=== PATIENT | female | born 1935 | race Caucasian/White ===

== ENCOUNTER 2020-02-27 00:26 | Inpatient (IN) | payer MEDICAID, MEDICARE ==
[~2020-02-27] VITALS: Ht 167.6 cm; Wt 78.9 kg
[2020-02-27] VITALS (8 sets, daily range): BP systolic 100–155; BP diastolic 50–77
[~2020-02-27 00:26] MED LIST: ADVA1AER2 IN; LEVA750T OR; LIPI80TA OR; METO50TA4 OR; PLAV75TA2 OR; PRED10TA2 OR; PRED50TA OR; SPIR1CAP INH; XOPEAER IN; [UNRECOGNIZED DRUG - OTHER] PO; vitamin PO
[2020-02-27] MEDS ORDERED: fentaNYL 100 MCG/2 ML INJECTION (J3010) IV ONE (00:45)
[2020-02-27] MEDS ORDERED: ONDANSETRON 4MG/2ML VIAL IV ONE (01:15)
[2020-02-27 01:16] LABS: BASO # 0.1 10^3/uL (0.0-0.2); BASO % 0.5 % (0.0-1.0); EOS # 0.1 10^3/uL (0.0-0.5); EOS % 0.9 % (0.0-3.0); HEMATOCRIT 41.4 % (36.0-47.0); HEMOGLOBIN 12.7 g/dl (12.0-15.5); LYMPH # 1.5 10^3/uL (1.5-5.0); LYMPH % 10.6 % (24.0-44.0); MEAN CORPUSCULAR HEMOGLOBIN 29.9 pg (27.0-33.0); MEAN CORPUSCULAR HGB CONC 30.7 g/dl (32.0-36.5); MEAN CORPUSCULAR VOLUME 97.4 fl (80.0-96.0); MONO # 0.8 10^3/uL (0.0-0.8); MONO % 5.8 % (0.0-5.0); NEUTROPHILS # 11.5 10^3/uL (1.5-8.5); NEUTROPHILS % 81.6 % (36.0-66.0); PLATELET COUNT, AUTOMATED 219 10^3/uL (150-450); RED BLOOD COUNT 4.25 10^6/uL (4.00-5.40); WHITE BLOOD COUNT 14.2 10^3/uL (4.0-10.0)
[2020-02-27 02:09] LABS: ALBUMIN 3.8 GM/DL (3.2-5.2); ALT/SGPT 16 U/L (12-78); BILIRUBIN,DIRECT 0.1 MG/DL (0.0-0.2); BILIRUBIN,TOTAL 0.4 MG/DL (0.2-1.0); BLOOD UREA NITROGEN 20 MG/DL (7-18); CALCIUM LEVEL 8.6 MG/DL (8.8-10.2); CARBON DIOXIDE LEVEL 32 MEQ/L (21-32); CHLORIDE LEVEL 101 MEQ/L (98-107); CK-MB VALUE MASS 2.4 NG/ML (<3.6); CPK CREATINE PHOSPHOKINASE 66 U/L (26-192); GLOMERULAR FILTRATION RATE > 60.0 (>32); GLUCOSE, FASTING 118 MG/DL (70-100); MB/CK RELATIVE INDEX 3.64 (< OR =4); SODIUM LEVEL 139 MEQ/L (136-145); TOTAL PROTEIN 7.4 GM/DL (6.4-8.2); TROPONIN I < 0.02 NG/ML (< 0.10)
[2020-02-27] MEDS ORDERED: ISOVUE-370 76% 100ML VIAL As Ordered ONE (02:19)
--- NOTE | 2020-02-27 02:51 | REPVR ---
PROCEDURE INFORMATION: Exam: XR Right Femur Exam date and time: 02/27/20 (1:50am) Age: 84 years old Clinical indication: Fall. Possible fracture. TECHNIQUE: Imaging protocol: XR Right femur Views: 2 views. COMPARISON: No relevant prior studies available FINDINGS: Acute displaced transcervical fracture of the right femoral neck. The femoral shaft is displaced superiorly by approx. 3 cm. Resultant varus deformity at the right hip. Degenerative changes at the right hip. No dislocation. Advanced degenerative changes at the right knee. IMPRESSION: Acute displaced fracture at the right femoral neck. No dislocation. Varus deformity at the right hip. Electronically signed by: Beti Agrawal On 02/27/2020 02:50:43 AM
--- NOTE | 2020-02-27 03:01 | REPVR ---
PROCEDURE INFORMATION: Exam: XR Right Knee Exam date and time: 02/27/20 (1:53am) Age: 84 years old Clinical indication: Fall. Possible fracture. TECHNIQUE: Imaging protocol: XR Right knee Views: 2 views COMPARISON: Right femur plain films of 02/27/20 FINDINGS: Advanced degenerative changes at the right knee. Significant tricompartmental narrowing. Diffuse osteopenia. No acute fracture. No dislocation. No significant joint effusion. Faint chondrocalcinosis changes may also be present. IMPRESSION: No acute findings. Advanced tricompartmental osteoarthritic changes at the right knee. Electronically signed by: Beti Agrawal On 02/27/2020 03:00:49 AM
--- NOTE | 2020-02-27 03:10 | REPVR ---
PROCEDURE INFORMATION: Exam: CT Abdomen and Pelvis with Contrast Exam date and time: 02/27/20 (2:33am) Age: 84 years old Clinical indication: Fall. Blunt trauma. Right hip pain after fall. TECHNIQUE: Imaging protocol: Computed tomography of the abdomen and pelvis with intravenous contrast. Radiation optimization: All CT scans at this facility use at least one of these dose optimization techniques: automated exposure control; mA and/or kV adjustment per patient size (includes targeted exams where dose is matched to clinical indication); or iterative reconstruction. Contrast material: Isovue 370 Contrast volume: 100 ml Contrast route: IV COMPARISON: No relevant prior studies available FINDINGS: Lower lung barber: Emphysematous lung changes. Probable scarring and chronic fibrotic changes at the lung bases. No pleural effusions. Moderately-sized hiatal hernia (4 x 5.5 cm in axial dimensions). Liver: Normal. No solid mass. Gallbladder and bile ducts: Normal. No calcified stones. No ductal dilatation. Pancreas: Normal. No ductal dilatation. Spleen: Normal. No splenomegaly. Adrenal glands: Normal. No mass. Kidneys and ureters: Normal. No hydronephrosis. Stomach and bowel: Unremarkable. No bowel obstruction. No mucosal thickening. Appendix: No evidence of appendicitis. Intraperitoneal space: Unremarkable. No free air. No significant fluid collection. Vasculature: Unremarkable. No abdominal aortic aneurysm. Lymph nodes: Unremarkable. No enlarged lymph nodes. Urinary bladder: Unremarkable as visualized. Reproductive: Unremarkable as visualized. Bones/joints: Acute displaced fracture at the base of the right femoral head (see separate CT-RIGHT HIP report). No hip dislocation. Multilevel degenerative thoraco-lumbar spine changes. Vacuum disc phenomenon at multiple levels. Mild dextroscoliosis of the lumbar spine. Soft tissues: Unremarkable. IMPRESSION: No acute abdominal nor intrapelvic pathology. No definite organ injury. Moderately-sized hiatal hernia. Acute displaced fracture at the base of the right femoral head (subcapital fracture) (see separate CT-RIGHT HIP report). No hip dislocation. Electronically signed by: Beti Agrawal On 02/27/2020 03:10:25 AM
--- NOTE | 2020-02-27 03:12 | REPVR ---
PROCEDURE INFORMATION: Exam: CT Right Lower Extremity Without Contrast, Hip Exam date and time: 02/27/2020 2:37 AM Age: 84 years old Clinical indication: Injury or trauma; Fall; Blunt trauma; Hip; Right; Additional info: Right hip pain after fall TECHNIQUE: Imaging protocol: CT of the Right lower extremity without contrast was performed. Exam focused on the hip. Radiation optimization: All CT scans at this facility use at least one of these dose optimization techniques: automated exposure control; mA and/or kV adjustment per patient size (includes targeted exams where dose is matched to clinical indication); or iterative reconstruction. COMPARISON: CR Knee, Ap, Lat RIGHT 02/27/2020 1:58 AM FINDINGS: Bones/joints: There is a subcapital fracture of the right femoral neck with cephalad migration of the distal fragment. There is external rotation of the distal fragment through the site of fracture. No pelvic or acetabular fracture is seen. Soft tissues: Normal. Appendix: Partial visualization of a normal appendix. IMPRESSION: Subcapital fracture of the right femoral neck with cephalad migration of the distal fragment and external rotation of the distal fragment through the site of fracture. Electronically signed by: Roman Goodwin On 02/27/2020 03:11:46 AM
--- NOTE | 2020-02-27 03:25 | HPEPDOC ---
[facility] Medical History & Physical Date of Admission Feb 27, 2020 Date of Service: Feb 27, 2020 Primary Care Physician: ULISSES ROA PA-C Attending Physician: HAN DO MD History and Physical TIME OF SERVICE 345AM CHIEF COMPLAINT: fall HISTORY OF PRESENT ILLNESS: Yesterday evening, this 84 yr old F tripped and fell while trying to bend down to look underneath a table. As a result of the fall she landed on her right hip and developed sharp 10/10 in severity hip pain. She denied having CP, dyspnea, dizziness, v or d prior to the fall. She hitting her head or LOC after the fall. Her chronic cough has not changed recently. 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 HOME MEDICATIONS: Please see below. PHYSICAL EXAMINATION: Vital Signs Date Time Temp Pulse Resp B/P (MAP) Pulse Ox O2 Delivery O2 Flow Rate FiO2 02/27/20 00:30 95 20 177/90 100 Nasal Cannula 3.0 02/27/20 00:43 98.1 GENERAL APPEARANCE: well nourished/ well developed / NAD HEENT: MM dry but pink /NC in place CARDIOVASCULAR: RRR/NMRG /radial pulses intact/ no BLE edema LUNGS: CTAB / equal air entry bilaterally ABDOMEN: flat / soft & NT w palpation MUSCULOSKELETAL: NCAT INTEGUMENT: not flushed NEUROLOGICAL: CN 2-12 intact /speech not dysarthric PSYCHIATRIC: A&Ox 3/ able to understand and follow commands LABORATORY DATA: Immature Granulocyte % (Auto) 0.6, Neutrophils (%) (Auto) 81.6H, Lymphocytes (%) (Auto) 10.6L, Monocytes (%) (Auto) 5.8H, Eosinophils (%) (Auto) 0.9, Basophils (%) (Auto) 0.5, Neutrophils # (Auto) 11.5H, Lymphocytes # (Auto) 1.5, Monocytes # (Auto) 0.8, Eosinophils # (Auto) 0.1, Basophils # (Auto) 0.1, Nucleated Red Blood Cells % (auto) 0.0 Anion Gap 6L, Glomerular Filtration Rate > 60.0, Calcium Level 8.6L, Total Bilirubin 0.4, Direct Bilirubin 0.1, Aspartate Amino Transf (AST/SGOT) 18, Alanine Aminotransferase (ALT/SGPT) 16, Alkaline Phosphatase 73, Total Creatine Kinase 66, Creatine Kinase MB 2.4, Creatine Kinase MB Relative Index 3.64, Troponin I < 0.02, Total Protein 7.4, Albumin 3.8, Albumin/Globulin Ratio 1.1L IMAGING: Xray hip "IMPRESSION: Acute displaced fracture at the right femoral neck. No dislocation. Varus deformity at the right hip." CT hip w/o contrast "IMPRESSION: Subcapital fracture of the right femoral neck with cephalad migration of the distal fragment and external rotation of the distal fragment through the site of fracture" ASSESSMENT: is an 84 yr old former smoker w COPD, chronic O2 dependence, Pulm HTN, & CAD who had a mechanical fall onto her hip and will be admitted for management of right femoral neck fx. PLAN: 1. Mechanical Fall Likely due to a combination of muscular weakness and pooor vision CT of the head unrevealing Trop wnl Plan: Admit to medical floor / frequent neuro checks/ after surgery the day time team may consult physical therapy consult to determine if she needs inpatient rehabilitation versus placement in an assisted living facility 2. Right Femoral Neck Fracture Preoperative Assessment: ASA Physical Status pre-op classification = 0 points = Class 1. Since her pro-BNP is <300 no additional testing is recommended prior to proceeding with surgery Plan: NPO after midnight w IVF for surgery possibly today / check COVID-19 / Ortho consult / pain control w Morphine / will ask RNs to place a Fonseca so she doesn't have to move her leg to get on a bed melissa 3. Suspected Osteoporosis Plan: post-op the day time team may start calcium & vitamin D/ she can f/u w her PCP for DEXA scan 4.Tachycardia Likely 2/2 pain Trop & K wnl Plan: IVF / f/u TSH K, Mag, D-dimer, Troponin, EKG, urine catecholamines 5.COPD with Chronic O2 Dependent Respiratory Failure She denies dyspnea or change in her chronic cough Plan: c/w O2, Spiriva daily and albuterol PRN DVT Px w SCDs Dispo: in pt rehab vs SNF for rehab after more than 2 midnight's stay Home Medications Scheduled Tiotropium [place] (Spiriva) 18 Mcg Cap.w.dev, 1 INHALATION INH DAILY Allergies Coded Allergies: Penicillins (Verified Allergy, Unknown, 02/27/20) aspirin (Verified Allergy, Unknown, 02/27/20) A-FIB/CHADSVASC A-FIB History Current/History of A-Fib/PAF?: No Current PO Anticoag Therapy: No HAN DO MD Feb 27, 2020 03:25
[2020-02-27] MEDS ORDERED: SPIR1CAP INH (03:33)
[2020-02-27 03:34] LABS: PROTHROMBIN TIME 13.4 SECONDS (12.5-14.3)
[2020-02-27 03:35] LABS: NT-PRO BNP 230 PG/ML (<450)
[2020-02-27] MEDS: LR 1,000 ML IV SCH ×3 (03:52→21:17)
[2020-02-27] MEDS ORDERED: ALBUTEROL SULFATE 2.5 MG/0.5 ML INH NEB SOLN NEB PRN (04:30)
[2020-02-27] MEDS: MORPHINE 2 MG/ML 1ML VIAL (J2270) IV PRN ×2 (04:59→15:10)
[2020-02-27] MEDS ORDERED: CLINDAMYCIN 900 MG in IV 1 EA IV ONE (07:00)
[2020-02-27] MEDS: TIOTROPIUM INHALER/CAPSULE (SPIRIVA) INH SCH (07:41)
[2020-02-27] MEDS ORDERED: fentaNYL 100 MCG/2 ML INJECTION (J3010) As Ordered ONE (07:48)
[2020-02-27] MEDS ORDERED: MIDAZOLAM INJ 2MG/2ML VIAL (J2250 PER 1MG) As Ordered ONE (07:48)
[2020-02-27] MEDS ORDERED: LIDOCAINE 2% 100MG/5ML SDV (FOR ANES.) As Ordered ONE (07:49)
[2020-02-27] MEDS ORDERED: propofoL 200 MG/20 ML VIAL As Ordered ONE (07:49)
[2020-02-27] MEDS ORDERED: propofoL 500 MG/50 ML VIAL As Ordered ONE (07:49)
[2020-02-27] MEDS ORDERED: CLINDAMYCIN INJ 900MG/6ML VIAL As Ordered ONE (07:55)
[2020-02-27] MEDS ORDERED: EPINEPHrine INJ 1 MG/ML 1ML AMP As Ordered ONE (07:55)
[2020-02-27] MEDS ORDERED: CLINDAMYCIN 600 MG/50 ML PREMIX BAG As Ordered ONE (07:55)
--- NOTE | 2020-02-27 08:04 | ECGEPIP ---
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
[2020-02-27] MEDS: LIDOCAINE 5% OINT 30 GM TOP SCH ×2 (08:16→21:17)
[2020-02-27] MEDS ORDERED: PHENYLephrine HCL 500 MCG/5 ML (100MCG/ML) SYRINGE (J2370) As Ordered ONE ×3 (09:14→10:03)
[2020-02-27] MEDS ORDERED: TRANEXAMIC ACID 100 MG/ML 10ML VIAL As Ordered ONE (09:14)
[2020-02-27] MEDS ORDERED: ACETAMINOPHEN 1000MG 100ML IV BTL (OFIRMEV) (J0131 PER 10MG) As Ordered ONE (09:20)
[2020-02-27] MEDS ORDERED: ePHEDrine SULFATE 25 MG/5 ML(5MG/ML) SYRINGE As Ordered ONE (10:23)
[2020-02-27] MEDS ORDERED: oxyCODONE 5MG TAB PO PRN (11:00)
[2020-02-27] MEDS ORDERED: MEPERIDINE INJ 25 MG/ML VIAL (J2175) IV PRN (11:00)
[2020-02-27] MEDS ORDERED: ONDANSETRON 4MG/2ML VIAL IV PRN (11:00)
[2020-02-27] MEDS ORDERED: METOCLOPRAMIDE INJ 10MG/2ML VIAL (J2765 PER 1) IV PRN (11:00)
[2020-02-27] MEDS ORDERED: fentaNYL 100 MCG/2 ML INJECTION (J3010) IV PRN (11:00)
[2020-02-27] MEDS ORDERED: LR 1,000 ML IV SCH (11:00)
--- NOTE | 2020-02-27 11:13 | REP ---
INDICATION: S/P RIGHT HIP HEMIARTHROPLASTY. COMPARISON: Comparison right hip radiographs February 27, 2020 at 1:48 a.m... TECHNIQUE: Single-view. FINDINGS: Portably obtained AP radiograph of the right hip demonstrates a right hip hemiarthroplasty. Femoral head portion of the arthroplasty appears to be subluxed inferiorly and laterally from the acetabulum. There is a 2.8 cm opacity projecting in the joint between the metallic femoral head component and the medial wall of the acetabulum. There is postoperative emphysema in adjacent to the arthroplasty. IMPRESSION: Inferolateral subluxation/dislocation of the right hip hemiarthroplasty. Question opaque material in the joint. <Electronically signed by Chava Poole > 02/27/20 0022
[2020-02-27] MEDS ORDERED: oxyCODONE 5MG TAB As Ordered ONE (11:47)
[2020-02-27 11:53] LABS: BLOOD UREA NITROGEN 17 MG/DL (7-18); CALCIUM LEVEL 8.4 MG/DL (8.8-10.2); CARBON DIOXIDE LEVEL 33 MEQ/L (21-32); CHLORIDE LEVEL 102 MEQ/L (98-107); CREATININE FOR GFR 0.78 MG/DL (0.55-1.30); GLOMERULAR FILTRATION RATE > 60.0 (>32); GLUCOSE, FASTING 135 MG/DL (70-100); MAGNESIUM LEVEL 2.1 MG/DL (1.8-2.4); POTASSIUM SERUM 4.5 MEQ/L (3.5-5.1); SODIUM LEVEL 138 MEQ/L (136-145); TROPONIN I < 0.02 NG/ML (< 0.10)
[2020-02-27] MEDS ORDERED: PERCOCET 5MG/325MG TAB PO PRN ×2 (16:00)
[2020-02-28] VITALS (11 sets, daily range): BP systolic 116–152; BP diastolic 58–98
[2020-02-28] MEDS ORDERED: CLINDAMYCIN 900 MG in IV 1 EA IV SCH (06:00)
[2020-02-28] MEDS ORDERED: NS 1,000 ML IV SCH (06:21)
[2020-02-28 06:41] LABS: HEMATOCRIT 35.6 % (36.0-47.0); HEMOGLOBIN 11.3 g/dl (12.0-15.5); MEAN CORPUSCULAR HGB CONC 31.7 g/dl (32.0-36.5); MEAN CORPUSCULAR VOLUME 97.5 fl (80.0-96.0); PLATELET COUNT, AUTOMATED 162 10^3/uL (150-450); RED BLOOD COUNT 3.65 10^6/uL (4.00-5.40); WHITE BLOOD COUNT 11.5 10^3/uL (4.0-10.0)
[2020-02-28 06:59] LABS: BLOOD UREA NITROGEN 14 MG/DL (7-18); CALCIUM LEVEL 8.4 MG/DL (8.8-10.2); CARBON DIOXIDE LEVEL 33 MEQ/L (21-32); CHLORIDE LEVEL 101 MEQ/L (98-107); CREATININE FOR GFR 0.67 MG/DL (0.55-1.30); GLOMERULAR FILTRATION RATE > 60.0 (>32); GLUCOSE, FASTING 99 MG/DL (70-100); POTASSIUM SERUM 4.1 MEQ/L (3.5-5.1); SODIUM LEVEL 137 MEQ/L (136-145)
[2020-02-28] MEDS: TIOTROPIUM INHALER/CAPSULE (SPIRIVA) INH SCH (07:17)
[2020-02-28] MEDS ORDERED: CLINDAMYCIN INJ 900MG/6ML VIAL As Ordered ONE (07:41)
[2020-02-28] MEDS ORDERED: CLINDAMYCIN 600 MG/50 ML PREMIX BAG As Ordered ONE (08:12)
[2020-02-28] MEDS ORDERED: propofoL 200 MG/20 ML VIAL As Ordered ONE (08:27)
[2020-02-28] MEDS ORDERED: fentaNYL 100 MCG/2 ML INJECTION (J3010) As Ordered ONE (08:27)
--- NOTE | 2020-02-28 08:36 | IPNPDOC ---
Date Seen The patient was seen on 02/28/20. Progress Note SUBJECTIVE: POD #1 Right hip hemiarthroplasty. possible retained bone vs glue with plans to go back to the OR today. still npo. c/o /10 pain righthip, but just r received pain meds. no fever/chills/sob/chest pain. no other issues overnight OBJECTIVE PHYSICAL EXAMINATION: vitals see below GENERAL APPEARANCE:aaox3 no respiratory distress HEENT:dry mucus membranes no jvd thyromegaly or cervical LAD CARDIOVASCULAR: RRR S1 S2 no m/r/g LUNGS: AEBE CTAB no w/r/r ABDOMEN: +bs x 4 quadrants soft & NT w palpation MUSCULOSKELETAL: rt hip postop skin pink and color warm to touch EXT: no edema b/l LE LABORATORY DATA, IMAGING STUDIES, MICROBIOLOGY: Please see below. ASSESSMENT: is an 84 yr old former smoker w COPD, chronic O2 dependence, Pulm HTN, & CAD who had a mechanical fall onto her hip and will be admitted for management of right femoral neck fx. PROBLEMS: Mechanical Fall Right Femoral Neck Fracture s/p right hip hemiarthroplasty with retained material? Osteoporosis COPD Chronic hypoxic Respiratory Failure on 2 lnc oxygen PLAN: pt is going back to the OR due to retained fragment for second look. npo status. pain mgt, dvt prophylaxis and post op mgt per ortho. resumed onall other home meds. VS, I&O, 24H, Fishbone Vital Signs/I&O Vital Signs Date Time Temp Pulse Resp B/P (MAP) Pulse Ox O2 Delivery O2 Flow Rate FiO2 02/28/20 02:00 98.7 114 18 152/81 (104) 94 Nasal Cannula 3.0 I&O- Last 24 Hours up to 6 AM 02/28/20 06:00 Intake Total 2310 ml Output Total 700 ml Balance 1610 ml Laboratory Data 24H LABS Laboratory Tests 2 02/27/20 10:47: Anion Gap 3L, Glomerular Filtration Rate > 60.0, Calcium Level 8.4L, Magnesium Level 2.1, Troponin I < 0.02 02/28/20 06:12: Nucleated Red Blood Cells % (auto) 0.0 02/28/20 06:13: Anion Gap 3L, Glomerular Filtration Rate > 60.0, Calcium Level 8.4L CBC/BMP Laboratory Tests 02/27/20 10:47 02/28/20 06:12 02/28/20 06:13 JASIEL CONTEH MD Feb 28, 2020 07:17
[2020-02-28] MEDS ORDERED: TRANEXAMIC ACID 100 MG/ML 10ML VIAL As Ordered ONE (08:43)
[2020-02-28] MEDS ORDERED: PHENYLephrine HCL 500 MCG/5 ML (100MCG/ML) SYRINGE (J2370) As Ordered ONE (08:47)
[2020-02-28] MEDS ORDERED: MIRALAX *UNIT DOSE* 17GM PACKET PO SCH (09:00)
[2020-02-28] MEDS ORDERED: MOM 30ML SUSPENSION UDC PO SCH (09:00)
[2020-02-28] MEDS ORDERED: LEVALBUTEROL 1.25 MG/0.5 ML CONCENTRATE NEB As Ordered ONE (10:03)
[2020-02-28] MEDS ORDERED: ONDANSETRON 4MG/2ML VIAL As Ordered ONE (10:04)
[2020-02-28] MEDS ORDERED: oxyCODONE 5MG TAB As Ordered ONE (10:04)
--- NOTE | 2020-02-28 10:31 | REP ---
INDICATION: yvon with foreign body. COMPARISON: Comparison is made with operative radiographs February 27, 2020.. TECHNIQUE: Three views. 15 seconds of fluoroscopy time is reported. FINDINGS: A sequence of 3 last image hold fluoroscopically obtained spot radiographs of the right hip hemiarthroplasty are presented. The last image in the sequence time stamped 1007 and 43 seconds a.m. shows reduction of the hemiarthroplasty. IMPRESSION: Procedural imaging. <Electronically signed by Chava Poole > 02/28/20 1021
--- NOTE | 2020-02-28 10:33 | REP ---
INDICATION: S/P arthroplasty, please perform in pacu. COMPARISON: Intraoperative C-arm images 02/28/20 TECHNIQUE: Single AP portable view FINDINGS: There is a right hip arthroplasty with the femoral stem component well aligned in relationship to the [place] bone and acetabulum. There is no visible fracture in the acetabulum or pubic rami IMPRESSION: Status post right hip arthroplasty with the prosthetic component well aligned in relationship to the [place] bone and acetabulum. <Electronically signed by Adrian Winkler > 02/28/20 1029
[2020-02-28] MEDS ORDERED: ONDANSETRON 4MG/2ML VIAL IV PRN ×2 (10:45)
[2020-02-28] MEDS ORDERED: LEVALBUTEROL 1.25 MG/0.5 ML CONCENTRATE NEB INH ONE (10:45)
[2020-02-28] MEDS ORDERED: LR 1,000 ML IV SCH ×2 (10:45)
[2020-02-28] MEDS ORDERED: MORPHINE 2 MG/ML 1ML VIAL (J2270) IV PRN (10:45)
[2020-02-28] MEDS ORDERED: oxyCODONE 5MG TAB PO PRN (10:45)
[2020-02-28] MEDS ORDERED: fentaNYL 100 MCG/2 ML INJECTION (J3010) IV PRN (10:45)
[2020-02-28] MEDS ORDERED: LEVALBUTEROL 1.25 MG/0.5 ML CONCENTRATE NEB INH PRN (11:00)
[2020-02-28] MEDS ORDERED: IPRATROPIUM 0.02% SOLN 0.5MG 2.5ML NEB INH PRN (11:00)
--- NOTE | 2020-02-28 11:06 | REP ---
INDICATION: DECREASED O2 SATS, INCREASED WORK OF BREATHING. COMPARISON: 08/04/2015 TECHNIQUE: AP portable semi erect chest FINDINGS: Lungs are somewhat hypoinflated compared to the previous study. There are diffuse coarsened interstitial markings throughout and they are somewhat exaggerated compared to that same appearance on the previous study, likely due to lesser degree of inflation. Heavier sign that markings are seen peripherally in the bases. Patchy subsegmental atelectasis or infiltrate noted retrocardiac region of the left lower lobe. I could not exclude small amount of atelectasis or infiltrate in the right CP angle. The heart size appears somewhat exaggerated due to low level of inflation. There is a calcified and tortuous ectatic aorta. The hypoinflation increase in appearance of mild vascular congestion. No visible effusion blunting CP angles but small effusions difficult to exclude. Airway intact. Bones are demineralized. There are degenerative changes in the spine shoulders. No free air under the diaphragm. IMPRESSION: 1. Chronic diffuse interstitial lung findings similar to the previous exam but exaggerated since 2016 by low-level of inflation 2. Patchy retrocardiac atelectasis or infiltrate in the left lower lobe. Questionable similar findings in the right CP angle. 3. Cardiac silhouette exaggerated by low level of inflation. Some mild vascular redistribution difficult to exclude with low-level inflation and underlying interstitial lung disease. Sign that <Electronically signed by Adrian Winkler > 02/28/20 [id number]
[2020-02-28] MEDS: LEVALBUTEROL 1.25 MG/0.5 ML CONCENTRATE NEB INH SCH ×3 (11:12→20:00)
[2020-02-28] MEDS: IPRATROPIUM 0.02% SOLN 0.5MG 2.5ML NEB INH SCH ×3 (11:13→20:00)
[2020-02-28 12:18] LABS: CK-MB VALUE MASS 5.9 NG/ML (<3.6); CPK CREATINE PHOSPHOKINASE 744 U/L (26-192); MB/CK RELATIVE INDEX 0.79 (< OR =4); NT-PRO BNP 1540 PG/ML (<450); TROPONIN I < 0.02 NG/ML (< 0.10)
--- NOTE | 2020-02-28 13:50 | ECGEPIP ---
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 Right axis deviation with right bundle branch block No change from 02/27/20. Electronically Signed on 02-28-2020 13:50:02 EST by Prakash Hinton
[2020-02-28] MEDS: ACETAMINOPHEN TAB 650MG DOSE (2X325MG) PO PRN (16:09)
[2020-02-28] MEDS: CLINDAMYCIN 600 MG in IV 1 EA IV SCH (16:09)
[2020-02-28] MEDS: PERCOCET 5MG/325MG TAB PO PRN (19:31)
[2020-02-29] MEDS: CLINDAMYCIN 600 MG in IV 1 EA IV SCH (01:10)
[2020-02-29 02:00] VITALS: BP 138/73
[2020-02-29] MEDS: LEVALBUTEROL 1.25 MG/0.5 ML CONCENTRATE NEB INH SCH ×7 (03:09→23:19)
[2020-02-29] MEDS: IPRATROPIUM 0.02% SOLN 0.5MG 2.5ML NEB INH SCH ×7 (03:09→23:19)
[2020-02-29] MEDS: ACETAMINOPHEN TAB 650MG DOSE (2X325MG) PO PRN (05:25)
[2020-02-29 06:00] VITALS: BP 147/73
[2020-02-29] MEDS ORDERED: metOLazone 5 MG TAB PO ONE (07:30)
[2020-02-29] MEDS ORDERED: FUROSEMIDE 40MG/4ML VIAL (J1940) IV ONE (08:00)
[2020-02-29] MEDS: MOM 30ML SUSPENSION UDC PO SCH (08:09)
[2020-02-29] MEDS: MIRALAX *UNIT DOSE* 17GM PACKET PO SCH (08:09)
--- NOTE | 2020-02-29 08:53 | IPNPDOC ---
Date Seen The patient was seen on 02/29/20. Progress Note SUBJECTIVE: POD 21 Right hip hemiarthroplasty. c/o worsening respiratory distress now on 5liters from baseline 2liters o2 by nc with wheezing, improved w xopenex. CXR: chronic changes, but elevated bnp. no c/o chest pain, palpitations but found to be tachycardic. had been on xarelto postop and pt refused cta chest to rule out PE. OBJECTIVE PHYSICAL EXAMINATION: vitals see below GENERAL APPEARANCE:aaox3 no respiratory distress HEENT:dry mucus membranes no jvd thyromegaly or cervical LAD CARDIOVASCULAR: irregular tachycardic S1 S2 2/6 DELROY LLSB LUNGS: AEBE CTAB no w/r/r ABDOMEN: +bs x 4 quadrants soft & NT w palpation MUSCULOSKELETAL: rt hip postop skin pink and color warm to touch EXT: no edema b/l LE LABORATORY DATA, IMAGING STUDIES, MICROBIOLOGY: Please see below. ASSESSMENT: is an 84 yr old former smoker w COPD, chronic O2 dependence, Pulm HTN, & CAD who had a mechanical fall onto her hip and will be admitted for management of right femoral neck fx. PROBLEMS: Mechanical Fall Right Femoral Neck Fracture s/p right hip hemiarthroplasty POD2 w ?retained material glue vs bone fragment Osteoporosis acute COPD exacerbation moderately severe pulmonary hypertension 50-60mmHg on 2010 Echo(Dr. Mendez) mod Tricuspid regurgitation grade 1 diastolic CHF EF 65% on echo 2010, acute right sided chf exacerbation w preserved systolic function due to cor pulmonale/pulm HTN Acute on Chronic hypoxic Respiratory Failure on 2 lnc oxygen at baseline, now on 5l nc o2 abnormal EKG-Premature atrial contractions PLAN: Pt refused workup of worserning hypoxia. Treated w nebs and short course of prednisone and trial of diuretics to see if pt's hypoxia improves. she has been anticoagulated w xarelton postop. card fay neg. pt has moderately-severe pulmonary HTN 50-60mmHg makingher prone to fluid overload and rightsided heart failure. will need to monitor strict i/o, weigh daily. postop mgt per ortho. VS, I&O, 24H, Fishbone Vital Signs/I&O Vital Signs Date Time Temp Pulse Resp B/P (MAP) Pulse Ox O2 Delivery O2 Flow Rate FiO2 02/29/20 06:00 98.2 111 19 147/73 (97) 95 Nasal Cannula 5.0 02/28/20 12:45 40 I&O- Last 24 Hours up to 6 AM 02/29/20 06:00 Intake Total 3110 ml Output Total 1200 ml Balance 1910 ml Laboratory Data 24H LABS Laboratory Tests 2 02/28/20 11:25: Total Creatine Kinase 744#H, Creatine Kinase MB 5.9H, Creatine Kinase MB Relative Index 0.79, Troponin I < 0.02, KK-Jes-G-Type Natriuretic Peptide 1540H JASIEL CONTEH MD Feb 29, 2020 08:47
[2020-02-29] MEDS ORDERED: predniSONE 20 MG TAB PO SCH (09:00)
[2020-02-29 09:10] LABS: BASO % 0.3 % (0.0-1.0); EOS # 0.1 10^3/uL (0.0-0.5); EOS % 1.2 % (0.0-3.0); HEMATOCRIT 34.8 % (36.0-47.0); HEMOGLOBIN 10.8 g/dl (12.0-15.5); LYMPH # 0.6 10^3/uL (1.5-5.0); LYMPH % 5.2 % (24.0-44.0); MEAN CORPUSCULAR HEMOGLOBIN 30.4 pg (27.0-33.0); MONO % 8.2 % (0.0-5.0); NEUTROPHILS # 9.9 10^3/uL (1.5-8.5); NEUTROPHILS % 84.8 % (36.0-66.0); PLATELET COUNT, AUTOMATED 161 10^3/uL (150-450); RED BLOOD COUNT 3.55 10^6/uL (4.00-5.40); WHITE BLOOD COUNT 11.6 10^3/uL (4.0-10.0)
[2020-02-29 09:54] LABS: ALBUMIN 2.8 GM/DL (3.2-5.2); ALT/SGPT 18 U/L (12-78); BILIRUBIN,TOTAL 0.5 MG/DL (0.2-1.0); BLOOD UREA NITROGEN 15 MG/DL (7-18); CALCIUM LEVEL 8.6 MG/DL (8.8-10.2); CARBON DIOXIDE LEVEL 35 MEQ/L (21-32); CHLORIDE LEVEL 98 MEQ/L (98-107); CK-MB VALUE MASS 3.4 NG/ML (<3.6); CPK CREATINE PHOSPHOKINASE 545 U/L (26-192); CREATININE FOR GFR 0.78 MG/DL (0.55-1.30); GLOMERULAR FILTRATION RATE > 60.0 (>32); GLUCOSE, FASTING 96 MG/DL (70-100); MB/CK RELATIVE INDEX 0.62 (< OR =4); NT-PRO BNP 2455 PG/ML (<450); POTASSIUM SERUM 4.3 MEQ/L (3.5-5.1); SODIUM LEVEL 137 MEQ/L (136-145); TOTAL PROTEIN 6.2 GM/DL (6.4-8.2); TROPONIN I < 0.02 NG/ML (< 0.10)
[2020-02-29] MEDS: PERCOCET 5MG/325MG TAB PO PRN ×2 (13:53→17:55)
[2020-02-29 14:00] VITALS: BP 128/84
[2020-02-29] MEDS: RIVAROXABAN 10 MG TAB (XARELTO) PO SCH (17:54)
[2020-02-29 18:23] LABS: IONIZED CALCIUM 4.3 MG/DL (4.5-5.3)
[2020-02-29 18:41] LABS: CALCIUM LEVEL 8.6 MG/DL (8.8-10.2); CREATININE FOR GFR 1.02 MG/DL (0.55-1.30); POTASSIUM SERUM 4.4 MEQ/L (3.5-5.1)
--- NOTE | 2020-02-29 21:04 | ECGEPIP ---
[facility] Test Date: 2020-02-29 Pat Name: HAKAN VICKERS Department: Room: [place] [address] Gender: Female Hr Clerk: NERIS : 1935 Requested By: JASIEL Noe Order Number: [id number] Reading MD: Alonso Carranza Measurements Intervals [place] Rate: 101 P: 41 [place]: 135 QRS: 127 QRSD: 157 T: -8 QT: 360 QTc: 467 Interpretive Statements SINUS TACHYCARDIA WITH OCCASIONAL VENTRICULAR PREMATURE COMPLEXES RIGHT AXIS DEVIATION Low QRS complex voltage in the limb leads RIGHT BUNDLE BRANCH BLOCK Similar to tracing done 02-28-20 Electronically Signed on 02-29-2020 21:04:02 EST by Alonso Carranza
[2020-02-29 22:00] VITALS: BP 116/85
[2020-03-01] MEDS: LEVALBUTEROL 1.25 MG/0.5 ML CONCENTRATE NEB INH SCH ×6 (03:49→23:12)
[2020-03-01] MEDS: IPRATROPIUM 0.02% SOLN 0.5MG 2.5ML NEB INH SCH ×3 (03:49→11:43)
[2020-03-01 05:30] LABS: HEMATOCRIT 30.2 % (36.0-47.0); HEMOGLOBIN 9.4 g/dl (12.0-15.5); MEAN CORPUSCULAR HEMOGLOBIN 29.9 pg (27.0-33.0); MEAN CORPUSCULAR HGB CONC 31.1 g/dl (32.0-36.5); MEAN CORPUSCULAR VOLUME 96.2 fl (80.0-96.0); PLATELET COUNT, AUTOMATED 162 10^3/uL (150-450); RED BLOOD COUNT 3.14 10^6/uL (4.00-5.40); WHITE BLOOD COUNT 10.3 10^3/uL (4.0-10.0)
[2020-03-01 05:51] LABS: BLOOD UREA NITROGEN 20 MG/DL (7-18); CALCIUM LEVEL 8.4 MG/DL (8.8-10.2); CARBON DIOXIDE LEVEL 38 MEQ/L (21-32); CHLORIDE LEVEL 95 MEQ/L (98-107); CREATININE FOR GFR 0.77 MG/DL (0.55-1.30); GLOMERULAR FILTRATION RATE > 60.0 (>32); GLUCOSE, FASTING 93 MG/DL (70-100); SODIUM LEVEL 137 MEQ/L (136-145)
[2020-03-01] MEDS ORDERED: ONDANSETRON 4 MG TAB PO PRN (06:30)
[2020-03-01 06:56] VITALS: BP 119/75
[2020-03-01] MEDS ORDERED: PERC5TAB12 PO (07:08)
[2020-03-01] MEDS ORDERED: XARE10TA PO (07:08)
[2020-03-01] MEDS ORDERED: FUROSEMIDE 40MG/4ML VIAL (J1940) IV SCH (09:00)
[2020-03-01] MEDS: predniSONE 20 MG TAB PO SCH (09:27)
[2020-03-01] MEDS: MOM 30ML SUSPENSION UDC PO SCH (09:27)
[2020-03-01] MEDS: MIRALAX *UNIT DOSE* 17GM PACKET PO SCH (09:27)
[2020-03-01] MEDS: PERCOCET 5MG/325MG TAB PO PRN ×2 (09:29→17:51)
--- NOTE | 2020-03-01 11:07 | CR ---
DATE OF CONSULTATION: 02/27/2020 CHIEF COMPLAINT: Right femoral neck fracture. HISTORY OF PRESENT ILLNESS: This 84-year-old female had a trip and fall at home. She is unable to ambulate. She was found to have a right hip fracture by the emergency department physician advisory application developer. She denied loss of consciousness or injury to anywhere else besides the right hip. She is seen in the hernandez at [facility]. PAST MEDICAL/SURGICAL HISTORY: 1. 2. Chronic obstructive pulmonary disease (COPD). 3. Chronic O2-dependent respiratory failure. 4. Coronary artery disease (CAD). 5. Dyslipidemia. 6. Pulmonary hypertension. 7. Mitral valve repair (MVR). 8. Tricuspid valve repair (TVR). 9. Hiatal hernia. 10. Tonsillectomy. MEDICATIONS: - Tiotropium. ALLERGIES: PENICILLIN AND ASPIRIN. SOCIAL HISTORY: She has four children. Lives alone. Former smoker. PHYSICAL EXAMINATION: Well-appearing 84-year-old female. BMI of 27. Vital signs are stable. She appears well. She is alert and oriented x3. She communicates appropriately. Her right lower extremity is slightly shorter and externally rotated. Skin is intact and dry overlying the right hip. Thigh compartments are soft. Normal sensation and motor function of the foot. Foot is warm and well perfused. Good pedal pulses. She is able to wiggle her toes and dorsiflex and plantarflex the foot. IMAGING: Radiographs of the hip and femur, as well as CT of the pelvis and hip reveal a displaced vertically oriented right femoral neck fracture. ASSESSMENT AND PLAN: This 84-year-old female has a displaced right femoral neck fracture. This is recommended for surgery. We talked about the pros, cons, risks, and benefits of nonoperative treatment versus right hip hemiarthroplasty for femoral neck fracture. These include, but are not limited to infection, pain, stiffness, weakness, damage to surrounding structures, neurovascular injury, fracture, difficulties with dislocation, component disassociation, wear, need for further surgery, limp, failure of abductor repair, anesthetic complications, blood clots, , and other risks. I also talked to her daughter on the phone this morning at the same time. She had no further questions. She signed the consent form for surgery, as well as her possible need for blood products and I explained the pros, cons, risks, and benefits of this as well. I marked the right lower extremity and I kept the patient n.p.o. in preparation for surgery. The patient has been cleared by the hospital service, who I thank for their involvement and the patient was also COVID negative. I let the operating room theatre know to book the case any room available immediately. NANY
[2020-03-01] MEDS: TIOTROPIUM INHALER/CAPSULE (SPIRIVA) INH SCH (12:45)
--- NOTE | 2020-03-01 12:50 | IPNPDOC ---
Text Note Date of Service The patient was seen on 03/01/20. NOTE SUBJECTIVE: Still complains of mild SOB but better than before. No fever or c hills, pain controlled PHYSICAL EXAMINATION: Vitals: see below GENERAL APPEARANCE: laying down flat in bed in no distress. HEENT: Moist mucus membranes, anicteric eyes, Neck: No jvd, no thyromegaly or cervical LAD CARDIOVASCULAR: irregular tachycardic S1 S2 2/6 Short systolic murmur. LUNGS: Bilateral diffuse wheezing and ronchi, Bilateral basal crackles Right > left. ABDOMEN: +bs x 4 quadrants soft & NT w palpation MUSCULOSKELETAL: rt hip postop skin pink and color warm to touch EXT: no edema b/l LE LABORATORY DATA, IMAGING STUDIES, MICROBIOLOGY: Reviewed. ASSESSMENT and Plan: This is a 84 yr old former smoker w COPD, chronic O2 dependence, Pulm HTN, & CAD who had a mechanical fall onto her right hip and had right femoral neck fx. She is s/p ORIF of the right hip on 02/27/20. Postoperatively she developed COPD exacerbation and Diastolic CHF exacerbation and acute on chronic hypoxic respiratory failure with her oxygen requirement going up to 5 L. Right femoral neck fracture s/p mechanical fall. s/p right hip hemiarthroplasty on 02/27/20 on xarelto, percocet. COPD exacerbation continue nebs , prednisone, spiriva Acute on chronic hypoxic respiratory failure continue oxygen supplementation and treatment for COPD ex and CHF exacerbation. Diastolic CHF exacerbation/ Acute on chronic right sided heart failure Echo 2011: moderately severe pulmonary hypertension 50-60mmHg on 2010 Echo(Dr. Mendez) mod Tricuspid regurgitation, grade 1 diastolic CHF EF 65% I/O , daily weights. continue IV lasix Severe pulmonary hypertension/ corpulmonale continue lasix. CAD/ dyslipidemia home meds. Hiatal hernia Osteoporosis VS,Fishbone, I+O VS, Fishbone, I+O Laboratory Tests 02/29/20 18:12 03/01/20 04:51 Vital Signs Date Time Temp Pulse Resp B/P (MAP) Pulse Ox O2 Delivery O2 Flow Rate FiO2 03/01/20 09:59 17 03/01/20 09:40 3.0 03/01/20 06:56 99.0 92 119/75 (90) 91 Nasal Cannula 02/28/20 12:45 40 I&O- Last 24 Hours up to 6 AM 03/01/20 06:00 Intake Total 1350 ml Output Total 3350 ml Balance -2000 ml SHAWANDA SEALS MD Mar 01, 2020 12:50
[2020-03-01 14:00] VITALS: BP 116/75
--- NOTE | 2020-03-01 16:23 | RO ---
DATE OF PROCEDURE: 02/27/2020 PREOPERATIVE DIAGNOSIS: POSTOPERATIVE DIAGNOSIS: PROCEDURE: SURGEON: Kenan Yuan MD ANESTHESIOLOGIST: Dr. Bacon ANESTHESIA: Spinal anesthetic. ELECTRIC FRYING PAN REPAIRER: None. OPERATIVE PREAMBLE: This pleasant, 84-year-old sustained a right displaced femoral neck fracture. We discussed pros, cons, risks, benefits with her and her daughter and will go ahead with right hip arthroplasty. She wished to proceed. We marked the right lower extremity and proceeded to surgery. OPERATIVE REPORT: The patient was brought to the operating theater. She was administered spinal anesthetic. She was transferred to the operating room table. Clindamycin 600 mg IV was given for surgical prophylaxis. The patient was placed into the right lateral decubitus position with the [place] hip positioner. All bony prominences were padded. SCDs used on the down leg. A Noreen Hugger was employed. Two grams of IV tranexamic acid was administered at the start of the case. The limb was prepped and draped in the usual sterile fashion with chlorhexidine based prep solution, allowing over three minutes for prep solution drying time prior to draping. Preoperative time-out was performed, confirming the site, the patient and the surgery. I began by making a standard lateral approach to the proximal lateral femur. I carried dissection down through skin and subcutaneous tissue, achieving meticulous hemostasis. I incised the tensor fascia karthik in line with the skin incision. I sharply released the abductors off the greater trochanter. A T- shaped capsulotomy was performed and the limbs tagged with #1 Vicryl stay sutures. A femoral neck cut was made approximately 1 cm above the level of the lesser trochanter. The femoral head was delivered and sized to a size 47. The canal was thoroughly prepared using pulse lavage. Standard lateralizing reamers as well as canal finding device and sequential broaching was used up to a size 4 to prepare the femoral canal. Pulse lavage was used again to prepare the canal. No obvious loose bodies were found in the acetabulum. Trialing was performed with a size 4 broach which appeared appropriate size with minus 3 mm taper junction and 47 size head. No obvious impingement, stable in all range of motion including flexion, internal rotation, external rotation and extension. Shuck test was normal. Limb lengths were normal as lengthened by approximately 1 cm. Trial broaches were removed. Cement was mixed using third-generation cement mixing techniques. A size 4 distal cement restrictor was employed. Final components were opened, found to be sterile. Head and neck junction was impacted into the size 4, 7 mm Synthes [place] head. Cement was allowed to get firm and then inserted into the canal and pressurized. I used third-generation cement mixing techniques. The patient did have some ECG changes during cementing but these subsided. The component was inserted with proper version, size 4 and allowed to thoroughly dry. Any excess cement was removed with a curette. The trunion was cleaned with pulse lavage, thoroughly dried and head and neck taper impacted using the [place] taper. The head was stable and solid. The final components were allowed to thoroughly set for at least 15 minutes with the cement. The hip was reduced and again trialed and found to be stable. The tensor fascia karthik was closed with running #1 Stratafix suture. The subcutaneous tissue was closed with interrupted 2-0 Vicryl suture. The wound was thoroughly irrigated. The skin was closed with Prineo, wound care dressing and allowed to thoroughly dry. The patient was transferred off the operating table and taken to the postanesthesia care unit in stable condition. All sponge, needle, and instrument counts were correct. No complications. Estimated blood loss was 100 mL. PLAN: The patient admitted to the hospital, weightbearing as tolerated, to see the PT and OT services to ensure safe mobilization and discharge home. Two doses of IV clindamycin after the procedure as is standard here at this center as well as Xarelto 10 mg p.o. once daily for the next 35 days for VTE prophylaxis. Followup in the office in two weeks time. The patient may shower over top of the incision immediately and trim the edges, however, leave the bandage on until at least followup. NANY
--- NOTE | 2020-03-01 16:26 | RO ---
DATE OF PROCEDURE: 02/28/2020 PREOPERATIVE DIAGNOSIS: Right hip subluxation after hemiarthroplasty and foreign body. POSTOPERATIVE DIAGNOSIS: Right hip subluxation after hemiarthroplasty and foreign body. PLANNED PROCEDURE: Right hip revision arthroplasty, removal of foreign body. PROCEDURE PERFORMED: Right hip revision arthroplasty, removal of foreign body. SURGEON: Kenan Yuan MD STRUCTURAL ENGINEERING DRAFTING OFFICER: None. ANESTHESIOLOGIST: Dr. Bacon ANESTHESIA: Spinal anesthetic. OPERATIVE PREAMBLE: An 84-year-old female who underwent a cemented hemiarthroplasty for right femoral neck fracture. She was found to have a subluxation postoperatively and obvious cement in the acetabulum resulting in subluxation of the hip. We talked about pros, cons, risks and benefits of undergoing revision hip arthroplasty. She signed the consent form. We talked to her daughter as well this morning as well as after the case to surgery. OPERATIVE REPORT: The patient was brought to the operating theater. She was administered IV clindamycin 600 mg as well as 2 gm of IV Ancef prior the start of the case. Spinal anesthesia was achieved at 9:15. All bony prominences were padded. The patient as placed very lateral decubitus with the [place] head positioner. An axillary roll was used. SCDs used on the down leg. The limb was prepped and draped in the usual sterile fashion, allowing over three minutes for prep solution drying time. The Prineo and wound dressing was removed prior to chlorhexidine based prep solution application. Preoperative time-out was performed, confirming the site, the patient and the surgery. I began by reopening the incision, removing all the routine suture material as well as removing the sutures from the abductors and the capsular stitch. I dislocated the hip, removed the 47 mm ball. I placed more stay sutures in the hypertrophic capsule. I made relaxation radial cuts at the superior aspect of the capsule. I removed the routine cement product from the acetabulum. I clearly irrigated the acetabulum. I used pulse lavage. I removed any remnants of the left ligamentum teres. There were no obvious retained foreign products in the acetabulum at this point. I attempted to trial. However, the head did appear to be having some difficulties reducing despite these maneuvers. As such, I downsized the head, trialed this with a 46 head. This reduced appropriately and nicely, normal trialing and shuck test. Then hip was again redislocated and a new, slightly smaller head was then placed, a 46 mm head with the named 3 mm taper junction. This was impacted into place after the trunion was appropriately cleaned. The hip joint was reduced. Intraop radiographs were taken to confirm that the hip was properly reduced and not subluxated, with no obvious foreign products. Again, the hip was trialed, found to be stable in all directions with a normal shuck test. The capsule was closed with FiberWire suture. Again, the hip abductors were repaired with #2 FiberWire suture. The tensor fascia karthik was repaired with #1 Stratafix, the subcutaneous tissue with 2-0 Vicryl and the skin with Prineo dressing. Prineo dressing was also fully dried. The patient was transferred off the operating table and taken to the postanesthesia care unit in stable condition. All sponge, needle, and instrument counts were correct. No complications. Estimated blood loss was 50 mL. PLAN: The patient is be weightbearing as tolerated, have a postoperative radiograph, AP of the hip in postanesthesia care unit and two doses of IV clindamycin for surgery prophylaxis after the surgery as is typical for this institute. VTE prophylaxis with Xarelto started preoperative day one. I have communicated to the patient as well as with her daughter. NANY
[2020-03-01] MEDS: RIVAROXABAN 10 MG TAB (XARELTO) PO SCH (17:51)
[2020-03-01] MEDS: ACETAMINOPHEN TAB 650MG DOSE (2X325MG) PO PRN (20:44)
[2020-03-01 22:00] VITALS: BP 119/65
[2020-03-02] MEDS: LEVALBUTEROL 1.25 MG/0.5 ML CONCENTRATE NEB INH SCH ×4 (02:35→15:01)
[2020-03-02 06:00] VITALS: BP 133/73
[2020-03-02 06:01] LABS: HEMATOCRIT 33.9 % (36.0-47.0); HEMOGLOBIN 10.5 g/dl (12.0-15.5); MEAN CORPUSCULAR HEMOGLOBIN 30.1 pg (27.0-33.0); MEAN CORPUSCULAR VOLUME 97.1 fl (80.0-96.0); PLATELET COUNT, AUTOMATED 212 10^3/uL (150-450); RED BLOOD COUNT 3.49 10^6/uL (4.00-5.40); WHITE BLOOD COUNT 9.5 10^3/uL (4.0-10.0)
[2020-03-02] MEDS ORDERED: PERC5TAB12 PO (06:11)
[2020-03-02] MEDS ORDERED: XARE10TA PO (06:11)
[2020-03-02 06:35] LABS: BLOOD UREA NITROGEN 19 MG/DL (7-18); CALCIUM LEVEL 9.1 MG/DL (8.8-10.2); CARBON DIOXIDE LEVEL 39 MEQ/L (21-32); CHLORIDE LEVEL 96 MEQ/L (98-107); CREATININE FOR GFR 0.72 MG/DL (0.55-1.30); GLOMERULAR FILTRATION RATE > 60.0 (>32); GLUCOSE, FASTING 86 MG/DL (70-100); POTASSIUM SERUM 3.8 MEQ/L (3.5-5.1); SODIUM LEVEL 137 MEQ/L (136-145)
[2020-03-02] MEDS: TIOTROPIUM INHALER/CAPSULE (SPIRIVA) INH SCH (07:34)
--- NOTE | 2020-03-02 08:51 | IPN ---
DATE: 02/28/2020 CHIEF COMPLAINT: Postoperative day #1 right hip hemiarthroplasty for femoral neck fracture, complicated by interpose material in the acetabulum. HISTORY OF PRESENT ILLNESS: An 84-year-old female underwent right hip hemiarthroplasty for femoral neck fracture. Postoperative radiographs. PHYSICAL EXAMINATION: This is a well-appearing 84-year-old female. Incision is clean and dry. Normal sensation and motor function to her foot. She can wiggle her toes, dorsiflex and plantarflex her foot. Radiographs, postoperative view, demonstrates cement in the acetabulum with subluxation of the hip and appropriate component position. ASSESSMENT AND PLAN: This is an 84-year-old female, postoperative day #1 from a right hip hemiarthroplasty who has unfortunately interpose material in the acetabulum, which includes cement and possibly soft tissue causing subluxation of the hip. This is an indication for a revision surgery to remove the interposed material. We talked about the pros, cons, risks, benefits of going ahead with that. I had the patient sign the consent form. Specific risks include, but are not limited to, infection, pain, stiffness, weakness, damage to surrounding structures, neurovascular injury, anesthetic complications, blood clots, fracture, and other risks. She wished to proceed and signed the consent form for surgery and will proceed with surgery this morning. NANY
--- NOTE | 2020-03-02 08:54 | IPN ---
DATE: 02/29/2020 CHIEF COMPLAINT: Postop day #1 right hip hemiarthroplasty revision with removal of loose body. HISTORY OF PRESENT ILLNESS: An 84-year-old female seen today on postoperative day #1. She is doing well. She is already up and ambulating independently and up to the washroom, she is doing that very well according to the nurses. She complains of no pain. No concerns or complaints from the patient. PHYSICAL EXAMINATION: This is a well-appearing 84-year-old female. The incision is clean and dry, free of redness or swelling, and no gross deformity. Normal sensation and motor function of the foot. The foot is warm and well perfused with good pedal pulses. She is able to wiggle her toes, dorsiflex and plantar flex the foot. Postop radiograph was reviewed from intraoperative as well as postoperatively. The appears well reduced, free of loose body or subluxation. The __ appears well positioned. ASSESSMENT: This is an 84-year-old female who will continue to be mobilized, weightbearing as tolerated. She can be discharged home. She has a good home support with her son and daughter. We will make sure she is safe for mobilization by PT and OT and staff. NANY
[2020-03-02] MEDS: predniSONE 20 MG TAB PO SCH (09:10)
[2020-03-02] MEDS: ACETAMINOPHEN TAB 650MG DOSE (2X325MG) PO PRN ×2 (09:10→17:36)
[2020-03-02] MEDS: MIRALAX *UNIT DOSE* 17GM PACKET PO SCH (09:10)
[2020-03-02] MEDS: MOM 30ML SUSPENSION UDC PO SCH (09:10)
[2020-03-02] MEDS ORDERED: VENTAER INH (10:40)
[2020-03-02] MEDS ORDERED: PRED20TA PO (10:40)
[2020-03-02 14:00] VITALS: BP 113/65
--- NOTE | 2020-03-02 17:02 | DS.PDOC ---
Discharge Summary General Date of Admission Feb 27, 2020 at 03:18 Date of Discharge 03/02/20 Discharge Summary PROCEDURES PERFORMED DURING STAY: [None]. DISCHARGE DIAGNOSES: Right Hip Fracture s/p mechanical fall COPD exacerbation Diastolic CHF exacerbation Acute on chronic hypoxic respiratory failure Acute on chronic right heart failure SECONDARY DIAGNOSIS: Chronic obstructive pulmonary disease (COPD). Chronic hypoxic respiratory failure Coronary artery disease (CAD). Dyslipidemia. Severe Pulmonary hypertension. Mitral valve repair (MVR). Tricuspid valve repair (TVR). Hiatal hernia. COMPLICATIONS/CHIEF COMPLAINT: Femur Fracture. HOSPITAL COURSE: This is a 84 yr old former smoker w COPD, chronic O2 dependence, Pulm HTN, & CAD who had a mechanical fall onto her right hip and had right femoral neck fx. She is s/p ORIF of the right hip on 02/27/20. Postoperatively she developed COPD exacerbation and Diastolic CHF exacerbation and acute on chronic hypoxic respiratory failure with her oxygen requirement going up to 5 L. She responded well to IV lasix and steroids and Nebs. She has been progressing well with PT. Physical therapy recommends for home with services at this time. Patient refuses home services and home PT. She is only agreeable to outpatient PT. Will give Script for outpatient PT. Right femoral neck fracture s/p mechanical fall. s/p right hip hemiarthroplasty on 02/27/20 on xarelto, percocet. COPD exacerbation continue nebs , prednisone x 2 days, spiriva Acute on chronic hypoxic respiratory failure continue oxygen supplementation and treatment for COPD ex and CHF exacerbation. Diastolic CHF exacerbation/ Acute on chronic right sided heart failure Echo 2011: moderately severe pulmonary hypertension 50-60mmHg on 2010 Echo(Dr. Mendez) mod Tricuspid regurgitation, grade 1 diastolic CHF EF 65% I/O , daily weights. Now resolved Severe pulmonary hypertension/ corpulmonale No issues at this time CAD/ dyslipidemia home meds. Hiatal hernia home meds Osteoporosis DISCHARGE MEDICATIONS: Please see below. ALLERGIES: Please see below. PHYSICAL EXAMINATION ON DISCHARGE: VITAL SIGNS: Please see below. GENERAL APPEARANCE: laying down flat in bed in no distress. HEENT: Moist mucus membranes, anicteric eyes, Neck: No jvd, no thyromegaly or cervical LAD CARDIOVASCULAR: irregular tachycardic S1 S2 2/6 Short systolic murmur. LUNGS: Bilateral diffuse wheezing and ronchi, Bilateral basal crackles Right > left. ABDOMEN: +bs x 4 quadrants soft & NT w palpation MUSCULOSKELETAL: rt hip postop skin pink and color warm to touch EXT: no edema b/l LE LABORATORY DATA: Please see below. ACTIVITY: [As tolerated]. DIET: As tolerated DISCHARGE PLAN: Home DISPOSITION: . DISCHARGE INSTRUCTIONS: Follow up with Dr Yuan in 2 weeks after surgery Follow up wtih PMD in 1 month Outpatient PT DISCHARGE CONDITION: [Stable]. TIME SPENT ON DISCHARGE: 35 minutes. Vital Signs/I&Os Vital Signs Date Time Temp Pulse Resp B/P (MAP) Pulse Ox O2 Delivery O2 Flow Rate FiO2 03/02/20 14:00 98.1 96 17 113/65 (81) 94 Nasal Cannula 2.0 02/28/20 12:45 40 I&O- Last 24 Hours up to 6 AM 03/02/20 07:00 Intake Total 790 ml Output Total 2600 ml Balance -1810 ml Laboratory Data Labs 24H Laboratory Tests 2 03/02/20 05:23: Nucleated Red Blood Cells % (auto) 0.0, Anion Gap 2L, Glomerular Filtration Rate > 60.0, Calcium Level 9.1 CBC/BMP Laboratory Tests 03/02/20 05:23 Discharge Medications Scheduled Prednisone (Prednisone) 20 Mg Tablet, 1 TAB PO DAILY Rivaroxaban (Xarelto) 10 Mg Tablet, 10 MG PO DAILY Rivaroxaban (Xarelto) 10 Mg Tablet, 10 MG PO DAILY Tiotropium [place] (Spiriva) 18 Mcg Cap.w.dev, 1 INHALATION INH DAILY, (Reported) Scheduled PRN Albuterol Sulfate (Ventolin Hfa) 18 Gm Hfa.aer.ad, 2 PUFF INH Q4-6HP PRN for whe ezing Oxycodone HCl/Acetaminophen (Percocet 5-325 mg Tablet) 1 Each Tablet, 1-2 TAB PO Q4H PRN for PAIN Allergies Coded Allergies: Penicillins (Verified Allergy, Unknown, 02/27/20) aspirin (Verified Allergy, Unknown, 02/27/20) SHAWANDA SEALS MD Mar 02, 2020 17:02
[2020-03-02] MEDS: RIVAROXABAN 10 MG TAB (XARELTO) PO SCH (17:36)
== END 2020-03-02 18:20 | disposition home or self-care (01) | DRG 521 ==
LOC: M ED 00:26 → M ED INP 03:18 → ENRESERV 03:33 → M MS5PR 04:40
PROVIDERS: ADMIT Internal Medicine; ATTEND Internal Medicine Nephrology
PROC: 0SRR0J9 Replacement of Right Hip Joint, Femoral Surface with Synthetic Substitute, Cemented, Open Approach (ICD-10-PCS; principal; 2020-02-27 07:32)
PROC: 0SRR0J9 Replacement of Right Hip Joint, Femoral Surface with Synthetic Substitute, Cemented, Open Approach (ICD-10-PCS; 2020-02-28)
PROC: 0QC Lower Bones, Extirpation (ICD-10-PCS; 2020-02-28)
DX: S72.011A Unspecified intracapsular fracture of right femur, initial encounter for closed fracture (principal); J96.21 Acute and chronic respiratory failure with hypoxia; J44.1 Chronic obstructive pulmonary disease with (acute) exacerbation; T84.021A Dislocation of internal left hip prosthesis, initial encounter; Y83.1 Surgical operation with implant of artificial internal device as the cause of abnormal reaction of the patient, or of later complication, without mention of misadventure at the time of the procedure; I25.10 Atherosclerotic heart disease of native coronary artery without angina pectoris; E78.5 Hyperlipidemia, unspecified; K44.9 Diaphragmatic hernia without obstruction or gangrene; I27.20 Pulmonary hypertension, unspecified; Z99.81 Dependence on supplemental oxygen; Z87.891 Personal history of nicotine dependence; Z88.0 Allergy status to penicillin; Z88.6 Allergy status to analgesic agent; Z79.899 Other long term (current) drug therapy; W22.8XXA Striking against or struck by other objects, initial encounter; Y92.009 Unspecified place in unspecified non-institutional (private) residence as the place of occurrence of the external cause

== ENCOUNTER 2020-08-19 12:53 | Emergency (ER) | payer MEDICARE ==
[~2020-08-19] VITALS: Ht 167.6 cm; Wt 70.5 kg
[~2020-08-19 12:53] MED LIST changes: +PERC5TAB12 PO; +PRED20TA PO; +VENTAER INH; +XARE10TA PO
[2020-08-19] MEDS ORDERED: STRI1AER2 PO (13:07)
[2020-08-19 13:43] LABS: BASO # 0.1 10^3/uL (0.0-0.2); BASO % 1.2 % (0.0-1.0); EOS # 0.1 10^3/uL (0.0-0.5); EOS % 2.1 % (0.0-3.0); HEMATOCRIT 41.4 % (36.0-47.0); HEMOGLOBIN 12.9 g/dl (12.0-15.5); LYMPH # 0.9 10^3/uL (1.5-5.0); LYMPH % 13.6 % (24.0-44.0); MEAN CORPUSCULAR HEMOGLOBIN 29.1 pg (27.0-33.0); MEAN CORPUSCULAR HGB CONC 31.2 g/dl (32.0-36.5); MEAN CORPUSCULAR VOLUME 93.5 fl (80.0-96.0); MONO # 0.6 10^3/uL (0.0-0.8); MONO % 9.1 % (2.0-8.0); NEUTROPHILS % 73.7 % (36.0-66.0); PLATELET COUNT, AUTOMATED 242 10^3/uL (150-450); RED BLOOD COUNT 4.43 10^6/uL (4.00-5.40); WHITE BLOOD COUNT 6.8 10^3/uL (4.0-10.0)
[2020-08-19 13:54] LABS: INR 1.03; PROTHROMBIN TIME 13.7 SECONDS (12.5-14.3)
[2020-08-19 13:55] LABS: PARTIAL THROMBOPLASTIN TIME 33.3 SECONDS (24.2-38.5)
[2020-08-19] MEDS ORDERED: ISOVUE-370 76% 100ML VIAL As Ordered ONE (13:58)
--- NOTE | 2020-08-19 14:42 | REP ---
INDICATION: bloody sputum/ SOB; R/O PE. COMPARISON: None TECHNIQUE: CT angiography chest obtained after the intravenous administration of 100 cc Isovue 370. Attention pulmonary arteries. FINDINGS: There is excellent visualization of the pulmonary arterial vasculature. No focal filling defects are present that would be considered consistent with pulmonary emboli. There is evidence of mediastinal and hilar adenopathy. There are no pleural or pericardial effusions. The thoracic aorta is within normal limits. There is a hiatal hernia. The imaged upper abdomen shows a low-density lesion in the right kidney in the superior pole measuring 1.8 cm. The imaged osseous structures show multiple vertebral body compression fractures of varying degrees. There is a grade 4 T12 compression fracture. The bones are diffusely demineralized. Evaluation of the lung barber shows advanced chronic changes with pleural blebs, parenchymal bulla, fibrotic changes, varicoid and saccular bronchiectasis, and honeycomb lung formation. There are numerable 3 and 4 mm sized pulmonary nodules. IMPRESSION: 1. There is no evidence of a pulmonary embolism. 2. Adenopathy as described above. 3. Advanced chronic lung field changes as described. Since there are no priors for comparison short interval follow-up is recommended. 4. Chronic osseous changes as described above. 5. Other findings as described above which may require additional follow-up. <Electronically signed by Jules Danielle > 08/19/20 [id number]
[2020-08-19 14:44] LABS: ALT/SGPT 12 U/L (12-78); BILIRUBIN,DIRECT 0.1 MG/DL (0.0-0.2); BILIRUBIN,TOTAL 0.4 MG/DL (0.2-1.0); CK-MB VALUE MASS 2.3 NG/ML (<3.6); CPK CREATINE PHOSPHOKINASE 44 U/L (26-192); LIPASE 83 U/L (73-393); MB/CK RELATIVE INDEX 5.23 (< OR =4); NT-PRO BNP 307 PG/ML (<450); TOTAL PROTEIN 7.6 GM/DL (6.4-8.2); TROPONIN I < 0.02 NG/ML (< 0.10)
[2020-08-19 15:55] LABS: RSV AMPLIFICATION NEGATIVE (NEGATIVE)
[2020-08-19 16:00] VITALS: BP 103/51
--- NOTE | 2020-08-19 18:20 | ECGEPIP ---
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
--- NOTE | 2020-08-20 10:17 | ED PDOC ---
Post-Departure Follow-Up radiology report faxed to Alina Moore MD Aug 20, 2020 10:17
== END 2020-08-19 16:15 | disposition home or self-care (01) ==
LOC: M ED 12:53
DX: R04.2 Hemoptysis (principal); I10 Essential (primary) hypertension; Z87.891 Personal history of nicotine dependence; Z88.0 Allergy status to penicillin; Z88.6 Allergy status to analgesic agent
CPT/HCPCS: 36415; 71275; 80047; 80076; 82550; 82553; 83690; 83880; 84443; 84484; 85025; 85610; 85730; 87631; 93005; 93041; 94760; 99285; Q9967

== ENCOUNTER → 2020-09-23 | Outpatient (REF) | payer MEDICARE ==
[~2020-09-23] MED LIST changes: +STRI1AER2 PO
== END ==
LOC: M LAB REF 16:42
PROVIDERS: ATTEND Physician Assistant
DX: J44.1 Chronic obstructive pulmonary disease with (acute) exacerbation (principal)

== ENCOUNTER 2021-12-30 19:48 | Inpatient (IN) | payer MEDICARE ==
[~2021-12-30] VITALS: Ht 167.6 cm; Wt 66.6 kg
[2021-12-30 21:23] LABS: BASO # 0.1 10^3/uL (0.0-0.2); BASO % 1.1 % (0.0-1.0); EOS # 0.2 10^3/uL (0.0-0.5); EOS % 3.5 % (0.0-3.0); HEMATOCRIT 39.8 % (36.0-47.0); HEMOGLOBIN 12.1 g/dl (12.0-15.5); LYMPH % 15.4 % (24.0-44.0); MEAN CORPUSCULAR HGB CONC 30.4 g/dl (32.0-36.5); MEAN CORPUSCULAR VOLUME 98.8 fl (80.0-96.0); MONO # 0.7 10^3/uL (0.0-0.8); MONO % 10.7 % (2.0-8.0); NEUTROPHILS # 4.5 10^3/uL (1.5-8.5); NEUTROPHILS % 69.1 % (36.0-66.0); PLATELET COUNT, AUTOMATED 197 10^3/uL (150-450); RED BLOOD COUNT 4.03 10^6/uL (4.00-5.40); WHITE BLOOD COUNT 6.6 10^3/uL (4.0-10.0)
[2021-12-30 21:34] LABS: INR 1.08; PROTHROMBIN TIME 14.4 SECONDS (12.7-14.5)
[2021-12-30 22:10] LABS: CK-MB VALUE MASS 2.8 NG/ML (<3.6); MB/CK RELATIVE INDEX 3.78 (< OR =4)
[2021-12-30 22:19] LABS: ALBUMIN 3.1 GM/DL (3.2-5.2); ALT/SGPT 13 U/L (12-78); BILIRUBIN,DIRECT < 0.1 MG/DL (0.0-0.2); BILIRUBIN,TOTAL 0.3 MG/DL (0.2-1.0); BLOOD UREA NITROGEN 16 MG/DL (7-18); CALCIUM LEVEL 8.4 MG/DL (8.8-10.2); CARBON DIOXIDE LEVEL 41 MEQ/L (21-32); CHLORIDE LEVEL 94 MEQ/L (98-107); CREATININE FOR GFR 0.58 MG/DL (0.55-1.30); GLOMERULAR FILTRATION RATE > 60.0 (>32); GLUCOSE, FASTING 99 MG/DL (70-100); NT-PRO BNP 2235 PG/ML (<450); POTASSIUM SERUM 4.9 MEQ/L (3.5-5.1); SODIUM LEVEL 137 MEQ/L (136-145); TOTAL PROTEIN 6.9 GM/DL (6.4-8.2)
[2021-12-30] MEDS ORDERED: FUROSEMIDE 20MG/2ML VIAL (J1940) IV ONE (22:30)
[2021-12-30] MEDS ORDERED: HOME MED LIST COMPLETE! XX SCH (23:25)
[2021-12-30] MEDS ORDERED: ALBUTEROL SULFATE 2.5 MG/0.5 ML INH NEB SOLN NEB PRN (23:40)
[2021-12-31] VITALS (12 sets, daily range): BP systolic 106–146; BP diastolic 54–97
[2021-12-31] MEDS ORDERED: DOXYCYCLINE HYCLATE 100 MG in D5W MINI-BAG PLUS 100 ML IV ONE ×2
[2021-12-31] MEDS ORDERED: DEXTROSE 50% 50 ML SYRINGE IV PRN (01:35)
[2021-12-31] MEDS ORDERED: GLUCOSE 4GM CHEW TABLET PO PRN (01:35)
[2021-12-31] MEDS ORDERED: GLUCAGON INJ 1MG VIAL SC PRN (01:35)
[2021-12-31 01:40] LABS: ABG BASE EXCESS 15.1 (-2.0-2.0); ABG HCO3 44.6 MEQ/L (22.0-26.0); ABG O2 SATURATION 97.6 % (95.0-99.0); ABG TOTAL CO2 47.2 MEQ/L (23.0-31.0); ABG pH (ARTERIAL) 7.344 UNITS (7.350-7.450)
[2021-12-31 01:45] LABS: ABG PARTIAL PRESSURE CO2 83.8 mmHg (35.0-45.0)
[2021-12-31] MEDS: IPRATROPIUM 0.5MG/ALBUTEROL 2.5MG INH SOL UD 3ML (DUONEB) NEB SCH ×4 (02:22→19:08)
[2021-12-31 04:07] LABS: ABG BASE EXCESS 12.6 (-2.0-2.0); ABG HCO3 40.4 MEQ/L (22.0-26.0); ABG O2 SATURATION 91.5 % (95.0-99.0); ABG PARTIAL PRESSURE O2 57.5 mmHg (75.0-100.0); ABG STANDARD HCO3 36.2 MEQ/L (22.0-26.0); ABG TOTAL CO2 42.5 MEQ/L (23.0-31.0); ABG pH (ARTERIAL) 7.392 UNITS (7.350-7.450)
[2021-12-31] MEDS ORDERED: INSULIN LISPRO (NovoLOG) PER UNIT SC SCH (06:00)
[2021-12-31 06:23] LABS: BLOOD UREA NITROGEN 13 MG/DL (7-18); CALCIUM LEVEL 8.9 MG/DL (8.8-10.2); CARBON DIOXIDE LEVEL 44 MEQ/L (21-32); CHLORIDE LEVEL 93 MEQ/L (98-107); GLOMERULAR FILTRATION RATE > 60.0 (>32); GLUCOSE, FASTING 107 MG/DL (70-100); POTASSIUM SERUM 4.4 MEQ/L (3.5-5.1); SODIUM LEVEL 136 MEQ/L (136-145)
[2021-12-31] MEDS ORDERED: MIRALAX *UNIT DOSE* 17GM PACKET PO PRN (07:30)
[2021-12-31] MEDS ORDERED: DOXYCYCLINE HYCLATE 100MG TABLET PO SCH (09:00)
[2021-12-31] MEDS ORDERED: FUROSEMIDE 20MG/2ML VIAL (J1940) IV SCH (09:00)
[2021-12-31] MEDS: methylPREDNISolone 40MG 1ML VIAL IV SCH ×3 (09:28→15:24)
[2021-12-31] MEDS: HEPARIN SOD (PORCINE) 5000UNITS/ML 1ML VIAL/SYRINGE SC SCH ×2 (09:29→21:24)
[2021-12-31] MEDS ORDERED: FUROSEMIDE 20MG/2ML VIAL (J1940) IV ONE (19:00)
[2021-12-31] MEDS ORDERED: methylPREDNISolone 125MG 2ML VIAL IV ONE (19:00)
[2021-12-31 19:16] LABS: ABG BASE EXCESS 13.7 (-2.0-2.0); ABG HCO3 41.6 MEQ/L (22.0-26.0); ABG O2 SATURATION 96.6 % (95.0-99.0); ABG PARTIAL PRESSURE O2 81.2 mmHg (75.0-100.0); ABG STANDARD HCO3 37.5 MEQ/L (22.0-26.0); ABG TOTAL CO2 43.6 MEQ/L (23.0-31.0); ABG pH (ARTERIAL) 7.408 UNITS (7.350-7.450)
[2021-12-31 19:17] LABS: ABG PARTIAL PRESSURE CO2 67.4 mmHg (35.0-45.0)
[2021-12-31 20:01] LABS: CK-MB VALUE MASS 3.4 NG/ML (<3.6); MB/CK RELATIVE INDEX 3.95 (< OR =4)
[2021-12-31] MEDS ORDERED: LEVALBUTEROL 1.25 MG/0.5 ML CONCENTRATE NEB INH PRN (20:10)
[2021-12-31 20:19] LABS: BLOOD UREA NITROGEN 20 MG/DL (7-18); CALCIUM LEVEL 9.1 MG/DL (8.8-10.2); CARBON DIOXIDE LEVEL 44 MEQ/L (21-32); CHLORIDE LEVEL 90 MEQ/L (98-107); CREATININE FOR GFR 0.75 MG/DL (0.55-1.30); GLOMERULAR FILTRATION RATE > 60.0 (>32); GLUCOSE, FASTING 122 MG/DL (70-100); NT-PRO BNP 1528 PG/ML (<450); POTASSIUM SERUM 4.5 MEQ/L (3.5-5.1); SODIUM LEVEL 132 MEQ/L (136-145)
[2021-12-31] MEDS: LEVALBUTEROL 1.25 MG/0.5 ML CONCENTRATE NEB NEB SCH ×2 (20:22→20:23)
[2021-12-31] MEDS ORDERED: guaiFENesin 200 MG TAB PO PRN (21:05)
[2022-01-01] MEDS: methylPREDNISolone 125MG 2ML VIAL IV SCH ×4 (01:50→19:11)
[2022-01-01] MEDS: CEPACOL LOZENGE PO PRN ×2 (01:50→21:22)
[2022-01-01] MEDS: IPRATROPIUM 0.5MG/ALBUTEROL 2.5MG INH SOL UD 3ML (DUONEB) NEB SCH ×4 (02:53→19:39)
[2022-01-01 03:25] LABS: ABG BASE EXCESS 16.7 (-2.0-2.0); ABG HCO3 44.8 MEQ/L (22.0-26.0); ABG O2 SATURATION 96.1 % (95.0-99.0); ABG PARTIAL PRESSURE O2 80.6 mmHg (75.0-100.0); ABG STANDARD HCO3 40.7 MEQ/L (22.0-26.0); ABG pH (ARTERIAL) 7.419 UNITS (7.350-7.450)
[2022-01-01 03:27] LABS: ABG PARTIAL PRESSURE CO2 70.8 mmHg (35.0-45.0)
[2022-01-01 05:39] LABS: HEMATOCRIT 36.9 % (36.0-47.0); HEMOGLOBIN 11.8 g/dl (12.0-15.5); MEAN CORPUSCULAR VOLUME 93.9 fl (80.0-96.0); PLATELET COUNT, AUTOMATED 192 10^3/uL (150-450); RED BLOOD COUNT 3.93 10^6/uL (4.00-5.40); WHITE BLOOD COUNT 4.3 10^3/uL (4.0-10.0)
[2022-01-01 06:00] VITALS: BP 100/60
[2022-01-01 06:30] LABS: BLOOD UREA NITROGEN 21 MG/DL (7-18); CALCIUM LEVEL 8.3 MG/DL (8.8-10.2); CARBON DIOXIDE LEVEL 42 MEQ/L (21-32); CHLORIDE LEVEL 91 MEQ/L (98-107); CREATININE FOR GFR 0.59 MG/DL (0.55-1.30); GLOMERULAR FILTRATION RATE > 60.0 (>32); GLUCOSE, FASTING 141 MG/DL (70-100); POTASSIUM SERUM 4.2 MEQ/L (3.5-5.1); SODIUM LEVEL 137 MEQ/L (136-145)
[2022-01-01] MEDS ORDERED: MIDODRINE 5 MG TAB PO ONE (08:00)
[2022-01-01] MEDS ORDERED: FUROSEMIDE 20MG/2ML VIAL (J1940) IV ONE (08:05)
[2022-01-01] MEDS ORDERED: FLEET ENEMA PR PRN (08:20)
[2022-01-01] MEDS ORDERED: SENOKOT S TAB PO PRN (08:20)
[2022-01-01 08:26] LABS: ABG BASE EXCESS 12.7 (-2.0-2.0); ABG HCO3 40.3 MEQ/L (22.0-26.0); ABG O2 SATURATION 96.9 % (95.0-99.0); ABG PARTIAL PRESSURE CO2 66.2 mmHg (35.0-45.0); ABG PARTIAL PRESSURE O2 87.8 mmHg (75.0-100.0); ABG STANDARD HCO3 36.5 MEQ/L (22.0-26.0); ABG TOTAL CO2 42.3 MEQ/L (23.0-31.0); ABG pH (ARTERIAL) 7.402 UNITS (7.350-7.450)
[2022-01-01 08:29] VITALS: BP 155/87
[2022-01-01] MEDS: HEPARIN SOD (PORCINE) 5000UNITS/ML 1ML VIAL/SYRINGE SC SCH ×2 (09:44→20:53)
[2022-01-01] MEDS: BISACODYL 10 MG SUPP PR SCH ×2 (09:45→20:53)
[2022-01-01 12:00] VITALS: BP 141/69
[2022-01-01 14:39] LABS: ABG BASE EXCESS 10.7 (-2.0-2.0); ABG HCO3 37.5 MEQ/L (22.0-26.0); ABG O2 SATURATION 93.6 % (95.0-99.0); ABG PARTIAL PRESSURE CO2 59.5 mmHg (35.0-45.0); ABG PARTIAL PRESSURE O2 65.3 mmHg (75.0-100.0); ABG STANDARD HCO3 34.4 MEQ/L (22.0-26.0); ABG TOTAL CO2 39.3 MEQ/L (23.0-31.0); ABG pH (ARTERIAL) 7.417 UNITS (7.350-7.450)
[2022-01-01 16:00] VITALS: BP 96/60
[2022-01-01 18:16] VITALS: BP 128/68
[2022-01-01 20:00] VITALS: BP 120/62
[2022-01-02] VITALS (19 sets, daily range): BP systolic 112–142; BP diastolic 55–75; O2SAT 90–99
[2022-01-02] MEDS: methylPREDNISolone 125MG 2ML VIAL IV SCH ×2 (00:31→06:08)
[2022-01-02] MEDS: IPRATROPIUM 0.5MG/ALBUTEROL 2.5MG INH SOL UD 3ML (DUONEB) NEB SCH ×4 (01:27→20:26)
[2022-01-02 04:12] LABS: HEMATOCRIT 37.5 % (36.0-47.0); HEMOGLOBIN 11.8 g/dl (12.0-15.5); MEAN CORPUSCULAR HEMOGLOBIN 29.6 pg (27.0-33.0); MEAN CORPUSCULAR HGB CONC 31.5 g/dl (32.0-36.5); PLATELET COUNT, AUTOMATED 205 10^3/uL (150-450); RED BLOOD COUNT 3.99 10^6/uL (4.00-5.40); WHITE BLOOD COUNT 7.8 10^3/uL (4.0-10.0)
[2022-01-02 04:43] LABS: BLOOD UREA NITROGEN 26 MG/DL (7-18); CALCIUM LEVEL 8.6 MG/DL (8.8-10.2); CARBON DIOXIDE LEVEL 43 MEQ/L (21-32); CHLORIDE LEVEL 92 MEQ/L (98-107); CREATININE FOR GFR 0.56 MG/DL (0.55-1.30); GLOMERULAR FILTRATION RATE > 60.0 (>32); GLUCOSE, FASTING 115 MG/DL (70-100); MAGNESIUM LEVEL 2.1 MG/DL (1.8-2.4); POTASSIUM SERUM 4.1 MEQ/L (3.5-5.1); SODIUM LEVEL 134 MEQ/L (136-145)
[2022-01-02] MEDS: FUROSEMIDE 20 MG TAB PO SCH (08:41)
[2022-01-02] MEDS: BISACODYL 10 MG SUPP PR SCH ×2 (08:41→21:16)
[2022-01-02] MEDS: HEPARIN SOD (PORCINE) 5000UNITS/ML 1ML VIAL/SYRINGE SC SCH ×2 (08:42→21:17)
[2022-01-02] MEDS ORDERED: methylPREDNISolone 125MG 2ML VIAL IV SCH (21:00)
[2022-01-03] VITALS: BP 136/74
[2022-01-03] MEDS: IPRATROPIUM 0.5MG/ALBUTEROL 2.5MG INH SOL UD 3ML (DUONEB) NEB SCH ×4 (02:00→19:31)
[2022-01-03 04:00] VITALS: BP 120/67
[2022-01-03 04:50] LABS: HEMOGLOBIN 12.3 g/dl (12.0-15.5); MEAN CORPUSCULAR HEMOGLOBIN 29.5 pg (27.0-33.0); MEAN CORPUSCULAR HGB CONC 30.8 g/dl (32.0-36.5); MEAN CORPUSCULAR VOLUME 95.9 fl (80.0-96.0); PLATELET COUNT, AUTOMATED 208 10^3/uL (150-450); RED BLOOD COUNT 4.17 10^6/uL (4.00-5.40)
[2022-01-03 05:23] LABS: BLOOD UREA NITROGEN 26 MG/DL (7-18); CALCIUM LEVEL 8.3 MG/DL (8.8-10.2); CARBON DIOXIDE LEVEL 43 MEQ/L (21-32); CHLORIDE LEVEL 92 MEQ/L (98-107); CREATININE FOR GFR 0.54 MG/DL (0.55-1.30); GLOMERULAR FILTRATION RATE > 60.0 (>32); GLUCOSE, FASTING 115 MG/DL (70-100); MAGNESIUM LEVEL 2.3 MG/DL (1.8-2.4); POTASSIUM SERUM 4.4 MEQ/L (3.5-5.1); SODIUM LEVEL 134 MEQ/L (136-145)
[2022-01-03 08:00] VITALS: BP 118/60
[2022-01-03] MEDS: FUROSEMIDE 20 MG TAB PO SCH (09:00)
[2022-01-03] MEDS: BISACODYL 10 MG SUPP PR SCH ×2 (09:29→20:59)
[2022-01-03] MEDS: predniSONE 20 MG TAB PO SCH (09:35)
[2022-01-03] MEDS: HEPARIN SOD (PORCINE) 5000UNITS/ML 1ML VIAL/SYRINGE SC SCH ×2 (09:35→20:59)
[2022-01-03 12:24] VITALS: BP 112/61
[2022-01-03 16:26] VITALS: BP 119/62
[2022-01-03 20:00] VITALS: BP 132/74
[2022-01-04] MEDS: IPRATROPIUM 0.5MG/ALBUTEROL 2.5MG INH SOL UD 3ML (DUONEB) NEB SCH ×2 (01:31→08:06)
[2022-01-04 04:00] VITALS: BP 130/68
[2022-01-04 06:09] LABS: HEMOGLOBIN 11.9 g/dl (12.0-15.5); MEAN CORPUSCULAR HEMOGLOBIN 29.5 pg (27.0-33.0); MEAN CORPUSCULAR HGB CONC 30.5 g/dl (32.0-36.5); MEAN CORPUSCULAR VOLUME 96.8 fl (80.0-96.0); PLATELET COUNT, AUTOMATED 181 10^3/uL (150-450); RED BLOOD COUNT 4.03 10^6/uL (4.00-5.40); WHITE BLOOD COUNT 6.4 10^3/uL (4.0-10.0)
[2022-01-04] MEDS ORDERED: FURO20TA2 PO (07:40)
[2022-01-04 07:42] LABS: BLOOD UREA NITROGEN 24 MG/DL (7-18); CALCIUM LEVEL 8.4 MG/DL (8.8-10.2); CHLORIDE LEVEL 93 MEQ/L (98-107); CREATININE FOR GFR 0.58 MG/DL (0.55-1.30); GLOMERULAR FILTRATION RATE > 60.0 (>32); GLUCOSE, FASTING 77 MG/DL (70-100); MAGNESIUM LEVEL 2.3 MG/DL (1.8-2.4); POTASSIUM SERUM 4.2 MEQ/L (3.5-5.1); SODIUM LEVEL 134 MEQ/L (136-145)
[2022-01-04] MEDS ORDERED: PRED20TA PO (07:42)
[2022-01-04 07:43] LABS: CARBON DIOXIDE LEVEL 45 MEQ/L (21-32)
[2022-01-04 07:49] VITALS: BP 126/58
[2022-01-04] MEDS: BISACODYL 10 MG SUPP PR SCH (09:00)
[2022-01-04] MEDS: HEPARIN SOD (PORCINE) 5000UNITS/ML 1ML VIAL/SYRINGE SC SCH (10:09)
[2022-01-04] MEDS: predniSONE 20 MG TAB PO SCH (10:09)
[2022-01-04] MEDS: FUROSEMIDE 20 MG TAB PO SCH (10:10)
== END 2022-01-04 11:56 | disposition home or self-care (01) | DRG 291 ==
LOC: EDBD 19:48 → M ED 19:48 → M ED INP 23:36 → M PCU 12-31 01:54 → M ICU 12-31 02:26 → M MSPAV 12-31 14:16 → M PCU 01-01 08:29
PROVIDERS: ADMIT Internal Medicine; ATTEND Internal Medicine
DX: I50.33 Acute on chronic diastolic (congestive) heart failure (principal); G93.41 Metabolic encephalopathy; J96.21 Acute and chronic respiratory failure with hypoxia; J96.22 Acute and chronic respiratory failure with hypercapnia; J44.1 Chronic obstructive pulmonary disease with (acute) exacerbation; E87.2 Acidosis; J84.10 Pulmonary fibrosis, unspecified; Z66 Do not resuscitate; Z99.81 Dependence on supplemental oxygen; K59.00 Constipation, unspecified; Z87.891 Personal history of nicotine dependence; Z88.0 Allergy status to penicillin; Z88.6 Allergy status to analgesic agent; Z79.899 Other long term (current) drug therapy

== ENCOUNTER 2022-02-15 10:20 | Inpatient (IN) | payer MEDICARE ==
[~2022-02-15] VITALS: Ht 162.6 cm; Wt 65.3 kg
[~2022-02-15 10:20] MED LIST changes: +FURO20TA2 PO; +STRI1AER2 INH; -STRI1AER2 PO
[2022-02-15 10:55] LABS: VENOUS BASE EXCESS 6.4 (-2.0-2.0); VENOUS O2 SATURATION 87.1 % (60.0-80.0); VENOUS PARTIAL PRESSURE CO2 78.2 mmHg (38.0-50.0); VENOUS PARTIAL PRESSURE O2 53.4 mmHg (30.0-50.0); VENOUS PH 7.281 UNITS (7.330-7.430); VENOUS TOTAL CO2 38.4 MEQ/L (24.0-28.0)
[2022-02-15] MEDS ORDERED: ACETAMINOPHEN 325 MG TAB PO ONE (10:55)
[2022-02-15 10:57] LABS: HEMATOCRIT 40.1 % (36.0-47.0); MEAN CORPUSCULAR HEMOGLOBIN 28.8 pg (27.0-33.0); MEAN CORPUSCULAR HGB CONC 29.9 g/dl (32.0-36.5); MEAN CORPUSCULAR VOLUME 96.2 fl (80.0-96.0); PLATELET COUNT, AUTOMATED 138 10^3/uL (150-450); RED BLOOD COUNT 4.17 10^6/uL (4.00-5.40); WHITE BLOOD COUNT 9.4 10^3/uL (4.0-10.0)
[2022-02-15 11:13] LABS: ATYPICAL LYMPH 5 % (0-5); BASOPHILS 1 % (0-1); LYMPHOCYTES 6 % (16-44); MONOCYTES 2 % (0-5); NEUTROPHILS 63 % (28-66)
[2022-02-15 11:15] LABS: PLATELET ESTIMATE DECREASED (NORMAL)
[2022-02-15 11:16] LABS: HYPOCHROMASIA 1+
[2022-02-15 11:26] LABS: OSMOLALITY SERUM 294 MOSM/KG (280-301)
[2022-02-15 11:29] LABS: ALBUMIN 3.1 GM/DL (3.2-5.2); ALT/SGPT 24 U/L (12-78); BILIRUBIN,DIRECT 0.1 MG/DL (0.0-0.2); BILIRUBIN,TOTAL 0.4 MG/DL (0.2-1.0); BLOOD UREA NITROGEN 26 MG/DL (7-18); CALCIUM LEVEL 8.5 MG/DL (8.8-10.2); CARBON DIOXIDE LEVEL 38 MEQ/L (21-32); CHLORIDE LEVEL 94 MEQ/L (98-107); CREATININE FOR GFR 0.75 MG/DL (0.55-1.30); GLOMERULAR FILTRATION RATE > 60.0 (>32); GLUCOSE, FASTING 129 MG/DL (70-100); POTASSIUM SERUM 5.1 MEQ/L (3.5-5.1); SODIUM LEVEL 134 MEQ/L (136-145); TOTAL PROTEIN 6.9 GM/DL (6.4-8.2)
[2022-02-15] MEDS ORDERED: LevoFLOXacin IV 750 MG in IV 1 EA IV ONE (11:50)
[2022-02-15] MEDS ORDERED: ACETAMINOPHEN 650 MG SUPP PR ONE (11:50)
[2022-02-15] MEDS: NS 1,000 ML IV SCH ×2 (12:14→20:58)
[2022-02-15] MEDS ORDERED: HOME MED LIST COMPLETE! XX SCH (14:40)
[2022-02-15] MEDS: IPRATROPIUM 0.5MG/ALBUTEROL 2.5MG INH SOL UD 3ML (DUONEB) NEB SCH ×2 (16:00→19:56)
[2022-02-15 17:00] VITALS: BP 130/62
[2022-02-15] MEDS: PANTOPRAZOLE 40MG VIAL IV SCH (17:15)
[2022-02-15] MEDS: methylPREDNISolone 40MG 1ML VIAL IV SCH ×2 (17:15→23:03)
[2022-02-15] MEDS: ENOXAPARIN 40MG/0.4ML SYRINGE (J1650 PER 10MG) SC SCH (17:15)
[2022-02-15 18:06] LABS: ABG BASE EXCESS 8.3 (-2.0-2.0); ABG HCO3 37.4 MEQ/L (22.0-26.0); ABG O2 SATURATION 93.3 % (95.0-99.0); ABG PARTIAL PRESSURE CO2 77.7 mmHg (35.0-45.0); ABG PARTIAL PRESSURE O2 66.8 mmHg (75.0-100.0); ABG TOTAL CO2 39.8 MEQ/L (23.0-31.0)
[2022-02-15 19:00] VITALS: BP 123/58
[2022-02-15 20:00] VITALS: BP 123/58
[2022-02-15 21:00] VITALS: BP 117/57
[2022-02-15 22:00] VITALS: BP 102/55
[2022-02-15 23:00] VITALS: BP 99/57
[2022-02-16] VITALS (23 sets, daily range): BP systolic 97–137; BP diastolic 56–71
[2022-02-16 05:16] LABS: HEMATOCRIT 39.5 % (36.0-47.0); HEMOGLOBIN 11.7 g/dl (12.0-15.5); MEAN CORPUSCULAR HEMOGLOBIN 28.3 pg (27.0-33.0); MEAN CORPUSCULAR HGB CONC 29.6 g/dl (32.0-36.5); MEAN CORPUSCULAR VOLUME 95.6 fl (80.0-96.0); PLATELET COUNT, AUTOMATED 149 10^3/uL (150-450); RED BLOOD COUNT 4.13 10^6/uL (4.00-5.40); WHITE BLOOD COUNT 4.1 10^3/uL (4.0-10.0)
[2022-02-16 05:44] LABS: ATYPICAL LYMPH 1 % (0-5); LYMPHOCYTES 13 % (16-44); METAMYELOCYTES 1 % (0-0); MONOCYTES 4 % (0-5); NEUTROPHILS 80 % (28-66)
[2022-02-16 05:46] LABS: HYPOCHROMASIA 2+; PLATELET ESTIMATE NORMAL (NORMAL)
[2022-02-16 05:57] LABS: ALBUMIN 2.5 GM/DL (3.2-5.2); ALT/SGPT 21 U/L (12-78); BILIRUBIN,TOTAL 0.3 MG/DL (0.2-1.0); BLOOD UREA NITROGEN 28 MG/DL (7-18); CALCIUM LEVEL 8.2 MG/DL (8.8-10.2); CARBON DIOXIDE LEVEL 32 MEQ/L (21-32); CHLORIDE LEVEL 99 MEQ/L (98-107); CREATININE FOR GFR 0.74 MG/DL (0.55-1.30); GLOMERULAR FILTRATION RATE > 60.0 (>32); GLUCOSE, FASTING 115 MG/DL (70-100); POTASSIUM SERUM 4.7 MEQ/L (3.5-5.1); SODIUM LEVEL 134 MEQ/L (136-145); TOTAL PROTEIN 6.5 GM/DL (6.4-8.2)
[2022-02-16] MEDS: methylPREDNISolone 40MG 1ML VIAL IV SCH ×3 (06:05→22:02)
[2022-02-16] MEDS: IPRATROPIUM 0.5MG/ALBUTEROL 2.5MG INH SOL UD 3ML (DUONEB) NEB SCH ×4 (07:44→19:30)
[2022-02-16] MEDS: TOBRAMYCIN INHAL 300 MG/5 ML SOLN INH SCH ×2 (08:00→19:32)
[2022-02-16 08:21] LABS: ABG BASE EXCESS 5.2 (-2.0-2.0); ABG HCO3 33.8 MEQ/L (22.0-26.0); ABG O2 SATURATION 96.5 % (95.0-99.0); ABG PARTIAL PRESSURE O2 87.3 mmHg (75.0-100.0); ABG STANDARD HCO3 29.1 MEQ/L (22.0-26.0); ABG pH (ARTERIAL) 7.293 UNITS (7.350-7.450)
[2022-02-16 08:24] LABS: ABG PARTIAL PRESSURE CO2 71.5 mmHg (35.0-45.0)
[2022-02-16] MEDS ORDERED: FUROSEMIDE 20MG/2ML VIAL (J1940) IV ONE (09:25)
[2022-02-16] MEDS: ENOXAPARIN 40MG/0.4ML SYRINGE (J1650 PER 10MG) SC SCH (09:45)
[2022-02-16] MEDS: PANTOPRAZOLE 40MG VIAL IV SCH (09:45)
[2022-02-16 10:17] LABS: THYROID STIMULATING HORMONE 0.647 uIU/ML (0.358-3.740)
[2022-02-16] MEDS: BUDESONIDE 0.5 MG/2 ML INHALATION SUSPENSION INH SCH ×2 (11:15→19:30)
[2022-02-16] MEDS: FORMOTEROL FUMARATE 20 MCG/2 ML INHALATION SOLUTION (PERFOROMIST) INH SCH ×2 (11:15→19:30)
[2022-02-16 12:22] LABS: ABG BASE EXCESS 8.8 (-2.0-2.0); ABG HCO3 36.9 MEQ/L (22.0-26.0); ABG PARTIAL PRESSURE O2 154.2 mmHg (75.0-100.0); ABG STANDARD HCO3 32.6 MEQ/L (22.0-26.0); ABG pH (ARTERIAL) 7.343 UNITS (7.350-7.450)
[2022-02-16 12:24] LABS: ABG PARTIAL PRESSURE CO2 69.5 mmHg (35.0-45.0)
[2022-02-16] MEDS: LevoFLOXacin IV 750 MG in IV 1 EA IV SCH (13:16)
[2022-02-17] VITALS (23 sets, daily range): BP systolic 106–142; BP diastolic 55–94; O2SAT 94
[2022-02-17 05:07] LABS: MEAN CORPUSCULAR HEMOGLOBIN 28.8 pg (27.0-33.0); MEAN CORPUSCULAR HGB CONC 31.4 g/dl (32.0-36.5); MEAN CORPUSCULAR VOLUME 91.6 fl (80.0-96.0); PLATELET COUNT, AUTOMATED 189 10^3/uL (150-450); RED BLOOD COUNT 3.82 10^6/uL (4.00-5.40); WHITE BLOOD COUNT 5.9 10^3/uL (4.0-10.0)
[2022-02-17 05:37] LABS: ABG HCO3 36.9 MEQ/L (22.0-26.0); ABG O2 SATURATION 98.6 % (95.0-99.0); ABG PARTIAL PRESSURE CO2 48.8 mmHg (35.0-45.0); ABG PARTIAL PRESSURE O2 122.1 mmHg (75.0-100.0); ABG STANDARD HCO3 35.8 MEQ/L (22.0-26.0); ABG TOTAL CO2 38.4 MEQ/L (23.0-31.0); ABG pH (ARTERIAL) 7.496 UNITS (7.350-7.450)
[2022-02-17 05:42] LABS: ALBUMIN 2.5 GM/DL (3.2-5.2); ALT/SGPT 17 U/L (12-78); BILIRUBIN,TOTAL 0.3 MG/DL (0.2-1.0); BLOOD UREA NITROGEN 37 MG/DL (7-18); CALCIUM LEVEL 8.5 MG/DL (8.8-10.2); CARBON DIOXIDE LEVEL 35 MEQ/L (21-32); CHLORIDE LEVEL 99 MEQ/L (98-107); CREATININE FOR GFR 0.75 MG/DL (0.55-1.30); GLOMERULAR FILTRATION RATE > 60.0 (>32); GLUCOSE, FASTING 127 MG/DL (70-100); POTASSIUM SERUM 4.4 MEQ/L (3.5-5.1); SODIUM LEVEL 136 MEQ/L (136-145); TOTAL PROTEIN 6.3 GM/DL (6.4-8.2)
[2022-02-17] MEDS: methylPREDNISolone 40MG 1ML VIAL IV SCH (06:01)
[2022-02-17] MEDS: FORMOTEROL FUMARATE 20 MCG/2 ML INHALATION SOLUTION (PERFOROMIST) INH SCH ×2 (07:12→19:17)
[2022-02-17] MEDS: BUDESONIDE 0.5 MG/2 ML INHALATION SUSPENSION INH SCH ×2 (07:12→19:16)
[2022-02-17] MEDS: IPRATROPIUM 0.5MG/ALBUTEROL 2.5MG INH SOL UD 3ML (DUONEB) NEB SCH ×4 (07:13→19:17)
[2022-02-17] MEDS: TOBRAMYCIN INHAL 300 MG/5 ML SOLN INH SCH ×2 (07:13→19:17)
[2022-02-17] MEDS: FUROSEMIDE 20MG/2ML VIAL (J1940) IV SCH (10:35)
[2022-02-17] MEDS: PANTOPRAZOLE 40MG VIAL IV SCH (10:35)
[2022-02-17] MEDS: ENOXAPARIN 40MG/0.4ML SYRINGE (J1650 PER 10MG) SC SCH (10:35)
[2022-02-17] MEDS: predniSONE 10 MG TAB PO SCH (10:36)
[2022-02-17] MEDS: LevoFLOXacin IV 750 MG in IV 1 EA IV SCH (12:58)
[2022-02-18] VITALS (11 sets, daily range): BP systolic 96–133; BP diastolic 57–60; O2SAT 95–100
[2022-02-18 05:04] LABS: HEMATOCRIT 35.4 % (36.0-47.0); MEAN CORPUSCULAR HEMOGLOBIN 28.7 pg (27.0-33.0); MEAN CORPUSCULAR HGB CONC 31.1 g/dl (32.0-36.5); MEAN CORPUSCULAR VOLUME 92.4 fl (80.0-96.0); PLATELET COUNT, AUTOMATED 207 10^3/uL (150-450); RED BLOOD COUNT 3.83 10^6/uL (4.00-5.40); WHITE BLOOD COUNT 6.5 10^3/uL (4.0-10.0)
[2022-02-18 05:27] LABS: ABG BASE EXCESS 9.9 (-2.0-2.0); ABG HCO3 35.7 MEQ/L (22.0-26.0); ABG O2 SATURATION 96.7 % (95.0-99.0); ABG PARTIAL PRESSURE CO2 53.9 mmHg (35.0-45.0); ABG PARTIAL PRESSURE O2 84.2 mmHg (75.0-100.0); ABG STANDARD HCO3 33.6 MEQ/L (22.0-26.0); ABG TOTAL CO2 37.4 MEQ/L (23.0-31.0); ABG pH (ARTERIAL) 7.439 UNITS (7.350-7.450)
[2022-02-18 05:38] LABS: ALBUMIN 2.4 GM/DL (3.2-5.2); ALT/SGPT 18 U/L (12-78); BILIRUBIN,TOTAL 0.2 MG/DL (0.2-1.0); BLOOD UREA NITROGEN 30 MG/DL (7-18); CALCIUM LEVEL 7.8 MG/DL (8.8-10.2); CARBON DIOXIDE LEVEL 39 MEQ/L (21-32); CHLORIDE LEVEL 99 MEQ/L (98-107); CREATININE FOR GFR 0.74 MG/DL (0.55-1.30); GLOMERULAR FILTRATION RATE > 60.0 (>32); GLUCOSE, FASTING 110 MG/DL (70-100); POTASSIUM SERUM 3.9 MEQ/L (3.5-5.1); SODIUM LEVEL 138 MEQ/L (136-145); TOTAL PROTEIN 6.1 GM/DL (6.4-8.2)
[2022-02-18] MEDS: TOBRAMYCIN INHAL 300 MG/5 ML SOLN INH SCH ×2 (07:43→21:57)
[2022-02-18] MEDS: BUDESONIDE 0.5 MG/2 ML INHALATION SUSPENSION INH SCH ×2 (07:43→21:57)
[2022-02-18] MEDS: FORMOTEROL FUMARATE 20 MCG/2 ML INHALATION SOLUTION (PERFOROMIST) INH SCH ×2 (07:43→21:57)
[2022-02-18] MEDS: IPRATROPIUM 0.5MG/ALBUTEROL 2.5MG INH SOL UD 3ML (DUONEB) NEB SCH ×4 (07:44→21:57)
[2022-02-18] MEDS: ENOXAPARIN 40MG/0.4ML SYRINGE (J1650 PER 10MG) SC SCH (10:01)
[2022-02-18] MEDS: PANTOPRAZOLE 40MG VIAL IV SCH (10:01)
[2022-02-18] MEDS: predniSONE 10 MG TAB PO SCH (10:01)
[2022-02-18] MEDS: FUROSEMIDE 20MG/2ML VIAL (J1940) IV SCH (10:01)
[2022-02-18] MEDS: LevoFLOXacin IV 750 MG in IV 1 EA IV SCH (12:08)
[2022-02-18] MEDS ORDERED: METOPROLOL 5 MG/5 ML VIAL IV STA (13:34)
[2022-02-18 13:50] LABS: MAGNESIUM LEVEL 2.3 MG/DL (1.8-2.4)
[2022-02-18] MEDS: METOPROLOL TART 25 MG TABLET PO SCH ×2 (13:50→17:36)
[2022-02-19] VITALS (9 sets, daily range): BP systolic 102–125; BP diastolic 57–72; O2SAT 100
[2022-02-19] MEDS: METOPROLOL TART 25 MG TABLET PO SCH ×5 (00:02→23:43)
[2022-02-19 05:52] LABS: HEMATOCRIT 38.3 % (36.0-47.0); HEMOGLOBIN 11.6 g/dl (12.0-15.5); MEAN CORPUSCULAR HEMOGLOBIN 28.7 pg (27.0-33.0); MEAN CORPUSCULAR HGB CONC 30.3 g/dl (32.0-36.5); MEAN CORPUSCULAR VOLUME 94.8 fl (80.0-96.0); PLATELET COUNT, AUTOMATED 206 10^3/uL (150-450); RED BLOOD COUNT 4.04 10^6/uL (4.00-5.40); WHITE BLOOD COUNT 5.2 10^3/uL (4.0-10.0)
[2022-02-19 06:41] LABS: ALBUMIN 2.5 GM/DL (3.2-5.2); ALT/SGPT 40 U/L (12-78); BILIRUBIN,TOTAL 0.2 MG/DL (0.2-1.0); BLOOD UREA NITROGEN 23 MG/DL (7-18); CALCIUM LEVEL 8.2 MG/DL (8.8-10.2); CARBON DIOXIDE LEVEL 43 MEQ/L (21-32); CHLORIDE LEVEL 93 MEQ/L (98-107); CREATININE FOR GFR 0.77 MG/DL (0.55-1.30); GLOMERULAR FILTRATION RATE > 60.0 (>32); GLUCOSE, FASTING 98 MG/DL (70-100); POTASSIUM SERUM 4.1 MEQ/L (3.5-5.1); SODIUM LEVEL 136 MEQ/L (136-145); TOTAL PROTEIN 5.8 GM/DL (6.4-8.2)
[2022-02-19] MEDS: FORMOTEROL FUMARATE 20 MCG/2 ML INHALATION SOLUTION (PERFOROMIST) INH SCH ×2 (07:40→21:32)
[2022-02-19] MEDS: BUDESONIDE 0.5 MG/2 ML INHALATION SUSPENSION INH SCH ×2 (07:42→21:33)
[2022-02-19] MEDS: IPRATROPIUM 0.5MG/ALBUTEROL 2.5MG INH SOL UD 3ML (DUONEB) NEB SCH ×4 (07:42→20:00)
[2022-02-19] MEDS: TOBRAMYCIN INHAL 300 MG/5 ML SOLN INH SCH ×3 (07:42→21:29)
[2022-02-19] MEDS: PANTOPRAZOLE 40MG TAB (PROTONIX) PO SCH (09:26)
[2022-02-19] MEDS: ENOXAPARIN 40MG/0.4ML SYRINGE (J1650 PER 10MG) SC SCH (09:26)
[2022-02-19] MEDS: predniSONE 10 MG TAB PO SCH (09:26)
[2022-02-19] MEDS: LevoFLOXacin IV 750 MG in IV 1 EA IV SCH (12:46)
[2022-02-19] MEDS: BACITRACIN OINTMENT 30GM TUBE TOP SCH ×2 (16:30→22:12)
[2022-02-20 04:11] VITALS: BP 110/57
[2022-02-20 04:47] LABS: HEMATOCRIT 37.3 % (36.0-47.0); HEMOGLOBIN 11.6 g/dl (12.0-15.5); MEAN CORPUSCULAR HEMOGLOBIN 29.1 pg (27.0-33.0); MEAN CORPUSCULAR HGB CONC 31.1 g/dl (32.0-36.5); MEAN CORPUSCULAR VOLUME 93.5 fl (80.0-96.0); PLATELET COUNT, AUTOMATED 183 10^3/uL (150-450); RED BLOOD COUNT 3.99 10^6/uL (4.00-5.40); WHITE BLOOD COUNT 5.2 10^3/uL (4.0-10.0)
[2022-02-20 05:25] LABS: ALBUMIN 2.4 GM/DL (3.2-5.2); ALT/SGPT 32 U/L (12-78); BILIRUBIN,TOTAL 0.2 MG/DL (0.2-1.0); BLOOD UREA NITROGEN 21 MG/DL (7-18); CALCIUM LEVEL 8.2 MG/DL (8.8-10.2); CARBON DIOXIDE LEVEL 42 MEQ/L (21-32); CHLORIDE LEVEL 93 MEQ/L (98-107); CREATININE FOR GFR 0.73 MG/DL (0.55-1.30); GLOMERULAR FILTRATION RATE > 60.0 (>32); GLUCOSE, FASTING 96 MG/DL (70-100); POTASSIUM SERUM 4.3 MEQ/L (3.5-5.1); SODIUM LEVEL 134 MEQ/L (136-145)
[2022-02-20] MEDS: IPRATROPIUM 0.5MG/ALBUTEROL 2.5MG INH SOL UD 3ML (DUONEB) NEB SCH ×3 (05:57→20:00)
[2022-02-20] MEDS: METOPROLOL TART 25 MG TABLET PO SCH ×3 (06:00→20:49)
[2022-02-20] MEDS: LevoFLOXacin 750 MG TABLET PO SCH (06:11)
[2022-02-20 08:00] VITALS: BP 127/58
[2022-02-20] MEDS: FORMOTEROL FUMARATE 20 MCG/2 ML INHALATION SOLUTION (PERFOROMIST) INH SCH ×2 (08:11→20:09)
[2022-02-20] MEDS: BUDESONIDE 0.5 MG/2 ML INHALATION SUSPENSION INH SCH ×2 (08:11→20:09)
[2022-02-20] MEDS: TOBRAMYCIN INHAL 300 MG/5 ML SOLN INH SCH ×2 (08:11→20:09)
[2022-02-20] MEDS: BACITRACIN OINTMENT 30GM TUBE TOP SCH ×3 (09:00→20:49)
[2022-02-20] MEDS: ENOXAPARIN 40MG/0.4ML SYRINGE (J1650 PER 10MG) SC SCH (09:27)
[2022-02-20] MEDS: predniSONE 10 MG TAB PO SCH (09:27)
[2022-02-20] MEDS: PANTOPRAZOLE 40MG TAB (PROTONIX) PO SCH (09:29)
[2022-02-20 16:00] VITALS: BP 114/59
[2022-02-20 20:00] VITALS: BP 112/56
[2022-02-20] MEDS ORDERED: RAMELTEON 8 MG TAB (ROZEREM) PO PRN (23:35)
[2022-02-21] VITALS: BP 119/61
[2022-02-21 04:23] LABS: HEMATOCRIT 37.3 % (36.0-47.0); HEMOGLOBIN 11.5 g/dl (12.0-15.5); MEAN CORPUSCULAR HEMOGLOBIN 28.7 pg (27.0-33.0); MEAN CORPUSCULAR HGB CONC 30.8 g/dl (32.0-36.5); PLATELET COUNT, AUTOMATED 203 10^3/uL (150-450); RED BLOOD COUNT 4.01 10^6/uL (4.00-5.40); WHITE BLOOD COUNT 6.6 10^3/uL (4.0-10.0)
[2022-02-21 05:18] LABS: ALBUMIN 2.3 GM/DL (3.2-5.2); ALT/SGPT 30 U/L (12-78); BILIRUBIN,TOTAL 0.2 MG/DL (0.2-1.0); BLOOD UREA NITROGEN 21 MG/DL (7-18); CALCIUM LEVEL 8.1 MG/DL (8.8-10.2); CARBON DIOXIDE LEVEL 41 MEQ/L (21-32); CHLORIDE LEVEL 97 MEQ/L (98-107); GLOMERULAR FILTRATION RATE > 60.0 (>32); GLUCOSE, FASTING 94 MG/DL (70-100); POTASSIUM SERUM 4.7 MEQ/L (3.5-5.1); SODIUM LEVEL 138 MEQ/L (136-145); TOTAL PROTEIN 5.8 GM/DL (6.4-8.2)
[2022-02-21] MEDS: LevoFLOXacin 750 MG TABLET PO SCH (05:24)
[2022-02-21] MEDS: BUDESONIDE 0.5 MG/2 ML INHALATION SUSPENSION INH SCH (07:56)
[2022-02-21] MEDS: FORMOTEROL FUMARATE 20 MCG/2 ML INHALATION SOLUTION (PERFOROMIST) INH SCH (07:56)
[2022-02-21] MEDS: IPRATROPIUM 0.5MG/ALBUTEROL 2.5MG INH SOL UD 3ML (DUONEB) NEB SCH ×2 (07:58→11:12)
[2022-02-21 08:00] VITALS: BP 102/55
[2022-02-21 09:07] VITALS: BP 102/55
[2022-02-21] MEDS: ENOXAPARIN 40MG/0.4ML SYRINGE (J1650 PER 10MG) SC SCH (09:07)
[2022-02-21] MEDS: PANTOPRAZOLE 40MG TAB (PROTONIX) PO SCH (09:07)
[2022-02-21] MEDS: predniSONE 10 MG TAB PO SCH (09:07)
[2022-02-21] MEDS: METOPROLOL TART 25 MG TABLET PO SCH (09:07)
[2022-02-21] MEDS: BACITRACIN OINTMENT 30GM TUBE TOP SCH (09:08)
[2022-02-21] MEDS: TOBRAMYCIN INHAL 300 MG/5 ML SOLN INH SCH (11:12)
[2022-02-21] MEDS ORDERED: ALBU6.7H6 INH (11:43)
[2022-02-21] MEDS ORDERED: METO1TAB87 PO (11:43)
[2022-02-21] MEDS ORDERED: STRI1AER2 INH (11:43)
[2022-02-21] MEDS ORDERED: PRED10TA2 PO (11:43)
[2022-02-21 12:00] VITALS: BP 101/51
== END 2022-02-21 14:37 | disposition home or self-care (01) | DRG 189 ==
LOC: M ED 10:20 → M ED INP 14:33 → M ICU 16:54
PROVIDERS: ADMIT Internal Medicine; ATTEND Internal Medicine
DX: J96.21 Acute and chronic respiratory failure with hypoxia (principal); J81.0 Acute pulmonary edema; I50.32 Chronic diastolic (congestive) heart failure; G93.40 Encephalopathy, unspecified; E87.3 Alkalosis; J44.1 Chronic obstructive pulmonary disease with (acute) exacerbation; Z66 Do not resuscitate; J96.22 Acute and chronic respiratory failure with hypercapnia; Z99.81 Dependence on supplemental oxygen; J84.10 Pulmonary fibrosis, unspecified; Z98.41 Cataract extraction status, right eye; Z90.49 Acquired absence of other specified parts of digestive tract; Z87.891 Personal history of nicotine dependence; I08.1 Rheumatic disorders of both mitral and tricuspid valves; I27.20 Pulmonary hypertension, unspecified; Z79.899 Other long term (current) drug therapy; Z88.0 Allergy status to penicillin; Z88.6 Allergy status to analgesic agent; I48.0 Paroxysmal atrial fibrillation

== ENCOUNTER 2022-07-30 08:40 | Inpatient (IN) | payer MEDICAID, MEDICARE ==
[~2022-07-30] VITALS: Ht 167.6 cm; Wt 71.0 kg
[~2022-07-30 08:40] MED LIST changes: +ALBU6.7H6 INH; +METO1TAB87 PO; +PRED10TA2 PO
[2022-07-30] MEDS ORDERED: IPRATROPIUM 0.5MG/ALBUTEROL 2.5MG INH SOL UD 3ML (DUONEB) NEB ONE (09:00)
[2022-07-30] MEDS ORDERED: ALBUTEROL SULFATE 2.5MG/0.5ML INH NEB SOLN INH ONE (09:00)
[2022-07-30] MEDS: FAMOTIDINE 20 MG TAB PO SCH (09:00)
[2022-07-30 09:28] LABS: ABG HCO3 40.3 MEQ/L (22.0-26.0); ABG O2 SATURATION 90.8 % (95.0-99.0); ABG PARTIAL PRESSURE O2 61.3 mmHg (75.0-100.0); ABG STANDARD HCO3 33.6 MEQ/L (22.0-26.0); ABG TOTAL CO2 43.1 MEQ/L (23.0-31.0); ABG pH (ARTERIAL) 7.263 UNITS (7.350-7.450)
[2022-07-30 09:31] LABS: ABG PARTIAL PRESSURE CO2 91.2 mmHg (35.0-45.0)
[2022-07-30 09:40] LABS: BASO % 0.3 % (0.0-1.0); EOS # 0.1 10^3/uL (0.0-0.5); HEMATOCRIT 37.2 % (36.0-47.0); HEMOGLOBIN 10.6 g/dl (12.0-15.5); LYMPH # 0.6 10^3/uL (1.5-5.0); LYMPH % 10.1 % (24.0-44.0); MEAN CORPUSCULAR HEMOGLOBIN 29.9 pg (27.0-33.0); MEAN CORPUSCULAR HGB CONC 28.5 g/dl (32.0-36.5); MEAN CORPUSCULAR VOLUME 104.8 fl (80.0-96.0); MONO # 0.4 10^3/uL (0.0-0.8); MONO % 6.4 % (2.0-8.0); NEUTROPHILS # 4.9 10^3/uL (1.5-8.5); NEUTROPHILS % 81.7 % (36.0-66.0); PLATELET COUNT, AUTOMATED 199 10^3/uL (150-450); RED BLOOD COUNT 3.55 10^6/uL (4.00-5.40)
[2022-07-30] MEDS ORDERED: LIDOCAINE 2% 5ML JELLY UROJET TOP ONE (10:15)
[2022-07-30 10:27] LABS: RSV AMPLIFICATION NEGATIVE (NEGATIVE)
[2022-07-30 11:03] LABS: CK-MB VALUE MASS 19.7 NG/ML (<3.6)
[2022-07-30 11:06] LABS: CK-MB VALUE MASS 18.5 NG/ML (<3.6)
[2022-07-30 11:06] LABS: THYROXINE (T4) 5.9 UG/DL (4.5-10.9)
[2022-07-30 11:07] LABS: THYROID STIMULATING HORMONE 1.393 uIU/ML (0.55-4.78)
[2022-07-30] MEDS ORDERED: LevoFLOXacin IV 750 MG in IV 1 EA IV ONE (11:10)
[2022-07-30 11:22] LABS: ALBUMIN 3.6 G/DL (3.2-5.2); ALKALINE PHOSPHATASE 60 U/L (46-116); ALT/SGPT 26 U/L (7.0-40); AST/SGOT 52 U/L (<34); BILIRUBIN,DIRECT 0.2 MG/DL (<0.4); BILIRUBIN,TOTAL 0.7 MG/DL (0.3-1.2); BLOOD UREA NITROGEN 41 MG/DL (9-23); CALCIUM LEVEL 8.5 MG/DL (8.3-10.6); CARBON DIOXIDE LEVEL > 40.0 MMOL/L (20-31); CHLORIDE LEVEL 97 MMOL/L (98-107); CPK CREATINE PHOSPHOKINASE 127 U/L (34-145); CREATININE FOR GFR 0.71 MG/DL (0.55-1.30); GLOMERULAR FILTRATION RATE > 60.0 (>32); GLUCOSE, FASTING 100 MG/DL (74-106); MB/CK RELATIVE INDEX 15.51 (< OR =4); POTASSIUM SERUM 5.5 MMOL/L (3.5-5.1); SODIUM LEVEL 140 MMOL/L (136-145); TOTAL PROTEIN 7.5 G/DL (5.7-8.2)
[2022-07-30 11:23] LABS: MB/CK RELATIVE INDEX 14.8 (< OR =4)
[2022-07-30 11:47] LABS: ABG BASE EXCESS 13.6 (-2.0-2.0); ABG HCO3 43.3 MEQ/L (22.0-26.0); ABG O2 SATURATION 94.8 % (95.0-99.0); ABG PARTIAL PRESSURE O2 73.8 mmHg (75.0-100.0); ABG STANDARD HCO3 37.3 MEQ/L (22.0-26.0); ABG pH (ARTERIAL) 7.312 UNITS (7.350-7.450)
[2022-07-30 11:49] LABS: ABG PARTIAL PRESSURE CO2 87.5 mmHg (35.0-45.0)
[2022-07-30] MEDS ORDERED: FUROSEMIDE 40MG/4ML VIAL IV ONE (12:00)
[2022-07-30] MEDS ORDERED: VENTAER INH (12:16)
[2022-07-30] MEDS ORDERED: METO1TAB87 PO (12:16)
[2022-07-30] MEDS ORDERED: STRI1AER2 INH (12:16)
[2022-07-30] MEDS ORDERED: TYLE650T38 PO (12:18)
[2022-07-30] MEDS ORDERED: HOME MED LIST COMPLETE! XX SCH (12:20)
[2022-07-30] MEDS ORDERED: BISACODYL 10MG SUPP PR PRN (12:25)
[2022-07-30] MEDS ORDERED: HYOSCYAMINE SULFATE 0.125 MG SUBL TABLET PO PRN (12:25)
[2022-07-30] MEDS ORDERED: ONDANSETRON 4MG ORAL DISINTEGRATING TAB PO PRN (12:25)
[2022-07-30] MEDS ORDERED: ACETAMINOPHEN 650MG SUPP PR PRN (12:25)
[2022-07-30] MEDS ORDERED: MORPHINE 2 MG/ML 1ML VIAL IV PRN (12:25)
[2022-07-30] MEDS ORDERED: SCOPOLAMINE 1MG TRANSDERMAL PATCH TOP PRN (12:25)
[2022-07-30] MEDS ORDERED: ATROPINE SULFATE 1% OPHTH SOLN 2ML BTL SL PRN (12:25)
[2022-07-30] MEDS ORDERED: ACETAMINOPHEN TAB 650MG DOSE (2X325MG) PO PRN (12:25)
[2022-07-30 13:30] VITALS: BP 142/64
[2022-07-30] MEDS ORDERED: IPRATROPIUM 0.5MG/ALBUTEROL 2.5MG INH SOL UD 3ML (DUONEB) NEB PRN (16:25)
[2022-07-30] MEDS: LORazepam 1 MG TAB PO PRN (21:36)
[2022-07-30] MEDS: MORPHINE 10MG/0.5ML ORAL CONCENTRATE SOLUTION U/D SL PRN (21:36)
[2022-07-31] MEDS: FAMOTIDINE 20 MG TAB PO SCH (09:00)
[2022-07-31] MEDS ORDERED: ENOXAPARIN 40MG/0.4ML SYRINGE (J1650 PER 10MG) SC SCH (09:00)
[2022-07-31] MEDS ORDERED: PREVNAR-20 VACCINE 0.5ML SYRINGE IM.IMMUN ONE (09:00)
[2022-07-31] MEDS: MORPHINE 10MG/0.5ML ORAL CONCENTRATE SOLUTION U/D SL PRN ×2 (11:01→22:50)
[2022-07-31] MEDS: LORazepam 1 MG TAB PO PRN ×2 (11:01→22:49)
== END 2022-08-01 08:34 | disposition expired | DRG 951 ==
LOC: M ED 08:40 → M ED INP 11:55 → ENRESERV 12:48 → M MSPAV 14:20
PROVIDERS: ADMIT Internal Medicine Pulmonary Disease; ATTEND Internal Medicine
DX: Z51.5 Encounter for palliative care (principal); J96.22 Acute and chronic respiratory failure with hypercapnia; J96.21 Acute and chronic respiratory failure with hypoxia; I21.4 Non-ST elevation (NSTEMI) myocardial infarction; I50.32 Chronic diastolic (congestive) heart failure; J44.1 Chronic obstructive pulmonary disease with (acute) exacerbation; E87.4 Mixed disorder of acid-base balance; R78.81 Bacteremia; I27.20 Pulmonary hypertension, unspecified; J84.10 Pulmonary fibrosis, unspecified; I25.10 Atherosclerotic heart disease of native coronary artery without angina pectoris; I48.0 Paroxysmal atrial fibrillation; Z88.0 Allergy status to penicillin; Z88.6 Allergy status to analgesic agent; Z79.899 Other long term (current) drug therapy; Z96.641 Presence of right artificial hip joint